=== PATIENT | male | born 1955 | race Caucasian/White ===

== ENCOUNTER 2020-12-23 16:45 | Emergency (ER) | payer SELFPAY ==
[~2020-12-23] VITALS: Ht 182.8 cm; Wt 122.4 kg
[2020-12-23 17:14] LABS: BASOPHILS % (AUTO) 0 % (0-10); EOSINOPHILS % (AUTO) 0 % (0-10); HEMATOCRIT 38 % (40-54); HEMOGLOBIN 13.1 G/DL (13.3-17.7); LYMPHOCYTES # (AUTO) 1.2 X 10^3 (1.0-4.0); LYMPHOCYTES % (AUTO) 26 % (12-44); MEAN CORPUSCULAR HEMOGLOBIN 31 PG (25-34); MEAN CORPUSCULAR HGB CONC 35 G/DL (32-36); MEAN CORPUSCULAR VOLUME 91 FL (80-99); MEAN PLATELET VOLUME 10.9 FL (7.4-10.4); MONOCYTES # (AUTO) 0.3 X 10^3 (0.0-1.0); MONOCYTES % (AUTO) 6 % (0-12); NEUTROPHILS % (AUTO) 67 % (42-75); PLATELET COUNT 161 10^3/uL (130-400); WHITE BLOOD COUNT 4.5 10^3/uL (4.3-11.0)
[2020-12-23 17:20] LABS: ABG BASE EXCESS 3.1 MMOL/L (-2.5-2.5); ABG OXYGEN SATURATION 93 % (94-100); ABG PCO2 38 MMHG (35-45); ABG PH 7.46 (7.37-7.43); ABG PO2 64 MMHG (79-93); ABG TCO2 28.2 MMOL/L (21.0-31.0); INSPIRED O2 ROOM AIR; PATIENT TEMP 36.7; VENTILATOR NO
[2020-12-23 17:28] LABS: ALANINE AMINOTRANSFERASE 76 U/L (0-55); ALBUMIN 3.9 GM/DL (3.2-4.5); ALKALINE PHOSPHATASE 55 U/L (40-136); BILIRUBIN,TOTAL 0.3 MG/DL (0.1-1.0); BUN/CREATININE RATIO 14; CALCIUM 8.9 MG/DL (8.5-10.1); CARBON DIOXIDE 24 MMOL/L (21-32); CHLORIDE 96 MMOL/L (98-107); CREATININE SERUM 1.32 MG/DL (0.60-1.30); GFR ESTIMATED 55; GLUCOSE 210 MG/DL (70-105); POTASSIUM 4.6 MMOL/L (3.6-5.0); SODIUM 133 MMOL/L (135-145); TOTAL PROTEIN 7.5 GM/DL (6.4-8.2)
--- NOTE | 2020-12-23 17:28 | Diagnostic Imaging Report ---
EXAMINATION: Chest 1 view HISTORY: SOA COMPARISON: None available. FINDINGS: Heart size and pulmonary vasculature are normal. There is a prominent opacity within the right lower lobe which is wedge shaped, suggestive of atelectasis. There may be mild uvrx-va-[id number] mediastinal shift. No pleural effusion or pneumothorax. The osseous structures are intact. IMPRESSION: 1. Wedge-shaped opacity within the right lower lobe suggestive of atelectasis, but underlying consolidation or mass cannot be excluded on this radiograph. Consider further evaluation with CT of the chest. 2. There may be some mild [id number]-sx-gfibk mediastinal shift which would favor atelectasis. Dictated by: Dictated on workstation # [id number]
[2020-12-23] MEDS ORDERED: IOHEXOL 350 MG/ML 100 ML (OMNIPAQUE 350) VIAL IV ONE (18:15)
[2020-12-23] MEDS ORDERED: NS 100 ML (IVPB) BAG IV ONE (18:15)
[2020-12-23] MEDS ORDERED: CATHETER FLUSH 10 ML SYR IV PRN (18:15)
[2020-12-23] MEDS ORDERED: HOLD METFORMIN - RECEIVED CONTRAST 20 ML VIAL IV SCH (18:15)
--- NOTE | 2020-12-23 18:44 | Diagnostic Imaging Report ---
EXAMINATION: CT angiography of the chest. TECHNIQUE: Contrast enhanced thin section helical images were obtained through the chest with intravenous contrast timed for the optimal opacification of the arterial structures per CTA protocol. Post-processing, reconstructions and interpretation of angiographic images of the vessels was performed. 3D MIP reconstructions were performed and reviewed. All CT scans use one or more of the following dose optimizing techniques: automated exposure control, MA and/or KvP adjustment based on patient size and exam type or iterative reconstruction. HISTORY: Covid positive, shortness of breath. COMPARISON: Chest radiograph 12/23/2020. FINDINGS: Vascular: No filling defects within the pulmonary arteries. Thoracic aorta is normal in caliber. Thyroid: The thyroid is normal. Mediastinum: Heart size is normal without significant pericardial effusion. There is a prominent subcarinal lymph node with central calcifications. Lungs and airways: There are patchy groundglass opacities seen throughout both lungs. No pleural effusion or pneumothorax. The airways are normal. Upper abdomen: There is diffuse hypoattenuation of liver which can be seen with hepatic steatosis. Musculoskeletal: Degenerative changes of the spine without suspicious osseous lesion or compression fracture. IMPRESSION: 1. No findings of pulmonary embolus. 2. Patchy ground glass opacities throughout both lungs compatible with history of Covid 19 and pneumonia. Dictated by: Dictated on workstation # [id number]
--- NOTE | 2020-12-23 19:03 | ED Respiratory ---
General Chief Complaint: Respiratory Problems Stated Complaint: COVID POSITIVE Nursing Triage Note: Patient presents to the ED with c/o of shortness of breath, cough, fever, and fatigue. He was sent to the ED from [facility] walk in clinic after a positive COVID 19 test. Patient states his symptoms began 8 days ago and his symptoms have not really improved. Source: patient History of Present Illness Date Seen by Provider: Dec 23, 2020 Time Seen by Provider: 16:48 Initial Comments Patient is a 62-year-old male who is Covid +3 days with fever, body aches, cough, shortness of breath for the past 8 days who presents with worsening of underlying symptoms. Patient reports persistent nonproductive cough, chest wall pain, shortness of breath, body aches, fatigue, sweats and generalized malaise. He has self treated with a Z-Alvin and prednisone which he completed 2 days ago. He completed full course of both medications which she had previously picked up during a holiday in [place]. He does not have underlying heart or lung disease that is known. He has not had a measured fever today. Denies nausea vomiting, inability to tolerate oral intake. Denies vomiting and diarrhea. No other acute symptoms or complaints. Timing/Duration: week, getting worse, changing over time Severity: moderate Prior Episodes/Possible Cause: other Modifying Factors: Improves With Other Associated Symptoms: other Allergies and Home Medications Allergies Coded Allergies: No Known Drug Allergies (Unverified , 12/23/20) Patient Home Medication List Home Medication List Reviewed: Yes Review of Systems Review of Systems Constitutional: see HPI EENTM: see HPI Respiratory: see HPI Cardiovascular: see HPI Gastrointestinal: see HPI Genitourinary: see HPI Musculoskeletal: see HPI Skin: see HPI Psychiatric/Neurological: See HPI Hematologic/Lymphatic: See HPI Immunological/Allergic: see HPI All Other Systems Reviewed Negative Unless Noted: Yes Past Pumcdyu-Aryqhm-Wblsyk Hx Past Med/Social Hx: Reviewed Nursing Past Med/Soc Hx Patient Social History Alcohol Use: Occasionally Uses Smoking Status: Never a Smoker 2nd Hand Smoke Exposure: No Recent Infectious Disease Expo: No Recent Hopitalizations: No Seasonal Allergies Seasonal Allergies: No Past Medical History Surgeries: No Sleep Apnea, COPD Currently Using CPAP: Yes Cardiac: Yes High Cholesterol, Hypertension Neurological: No Genitourinary: No Gastrointestinal: No Musculoskeletal: No Endocrine: Yes Diabetes, Non-Insulin dep HEENT: No Cancer: No Psychosocial: No Integumentary: Yes (Skin Tags) Blood Disorders: No Physical Exam Vital Signs - First Documented 12/23/20 16:50 Temp 36.8 Pulse 115 Resp 16 B/P (MAP) 156/115 (129) Pulse Ox 93 O2 Delivery Room Air Capillary Refill : Less Than 3 Seconds Height: '" Weight: lbs. oz. 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, no motor/sensory deficits, alert, oriented x 3 Skin: normal color (Flushing), other Lymphatic: no adenopathy Focused Exam Sepsis Stage: Ruled Out Lactate Level 12/23/20 16:58: Lactic Acid Level 1.43 Lactic Acid Level Laboratory Tests Test 12/23/20 16:58 Lactic Acid Level 1.43 MMOL/L (0.50-2.00) Progress/Results/Core Measures Suspected Sepsis Recent Fever Within 48 Hours: Yes Infection Criteria Present: Documented Infection New/Unexplained Altered Menta: No Sepsis Screen: Possible Severe Sepsis Risk SIRS Temperature: Pulse: 115 Respiratory Rate: 16 Laboratory Tests 12/23/20 16:58: White Blood Count 4.5 Blood Pressure 156 /115 Mean: 129 12/23/20 16:58: Lactic Acid Level 1.43 Laboratory Tests 12/23/20 16:58: Creatinine 1.32H, Platelet Count 161, Total Bilirubin 0.3 Results/Orders Lab Results Laboratory Tests Test 12/23/20 16:58 12/23/20 17:16 Range/Units White Blood Count 4.5 4.3-11.0 10^3/uL Red Blood Count 4.18 L 4.35-5.85 10^6/uL Hemoglobin 13.1 L 13.3-17.7 G/DL Hematocrit 38 L 40-54 % Mean Corpuscular Volume 91 80-99 FL Mean Corpuscular Hemoglobin 31 25-34 PG Mean Corpuscular Hemoglobin Concent 35 32-36 G/DL Red Cell Distribution Width 13.7 10.0-14.5 % Platelet Count 161 130-400 10^3/uL Mean Platelet Volume 10.9 H 7.4-10.4 FL Immature Granulocyte % (Auto) 0 % Neutrophils (%) (Auto) 67 42-75 % Lymphocytes (%) (Auto) 26 12-44 % Monocytes (%) (Auto) 6 0-12 % Eosinophils (%) (Auto) 0 0-10 % Basophils (%) (Auto) 0 0-10 % Neutrophils # (Auto) 3.0 1.8-7.8 X 10^3 Lymphocytes # (Auto) 1.2 1.0-4.0 X 10^3 Monocytes # (Auto) 0.3 0.0-1.0 X 10^3 Eosinophils # (Auto) 0.0 0.0-0.3 10^3/uL Basophils # (Auto) 0.0 0.0-0.1 10^3/uL Immature Granulocyte # (Auto) 0.0 0.0-0.1 10^3/uL Sodium Level 133 L 135-145 MMOL/L Potassium Level 4.6 3.6-5.0 MMOL/L Chloride Level 96 L 98-107 MMOL/L Carbon Dioxide Level 24 21-32 MMOL/L Anion Gap 13 5-14 MMOL/L Blood Urea Nitrogen 19 H 7-18 MG/DL Creatinine 1.32 H 0.60-1.30 MG/DL Estimat Glomerular Filtration Rate 55 BUN/Creatinine Ratio 14 Glucose Level 210 H 70-105 MG/DL Lactic Acid Level 1.43 0.50-2.00 MMOL/L Calcium Level 8.9 8.5-10.1 MG/DL Corrected Calcium 9.0 8.5-10.1 MG/DL Total Bilirubin 0.3 0.1-1.0 MG/DL Aspartate Amino Transf (AST/SGOT) 122 H 5-34 U/L Alanine Aminotransferase (ALT/SGPT) 76 H 0-55 U/L Alkaline Phosphatase 55 40-136 U/L Troponin I < 0.30 <0.30 NG/ML Pro-B-Type Natriuretic Peptide 44.2 <75.0 PG/ML Total Protein 7.5 6.4-8.2 GM/DL Albumin 3.9 3.2-4.5 GM/DL Blood Gas Puncture Site RIGHT WRIST Blood Gas Patient Temperature 36.7 Arterial Blood pH 7.46 H 7.37-7.43 Arterial Blood Partial Pressure CO2 38 35-45 MMHG Arterial Blood Partial Pressure O2 64 L 79-93 MMHG Arterial Blood HCO3 27 23-27 MMOL/L Arterial Blood Total CO2 28.2 21.0-31.0 MMOL/L Arterial Blood Oxygen Saturation 93 L 94-100 % Arterial Blood Base Excess 3.1 H -2.5-2.5 MMOL/L Janak Test N/A Blood Gas Ventilator Setting NO Blood Gas Inspired Oxygen ROOM AIR My Orders Orders - VALERIE ARREOLA DO Cbc With Automated Diff (12/23/20 17:11) Comprehensive Metabolic Panel (12/23/20 17:11) Probnp Fs (12/23/20 17:11) Arterial Blood Gas (12/23/20 17:11) Troponin I Fs (12/23/20 17:11) Ekg-Prn For Chest Pain Or Rhyt (12/23/20 17:11) Chest 1 View Ap/Pa Only (12/23/20 17:11) Lactic Acid Analyzer (12/23/20 17:13) Blood Culture (12/23/20 17:13) Blood Culture (12/23/20 16:58) Ct Angio Chest W (12/23/20 17:59) Iohexol Injection (Omnipaque 350 Mg/Ml 1 (12/23/20 18:15) Received Contrast (Hold Metformin- Contr (12/23/20 18:15) Sodium Chloride Flush (Catheter Flush Sy (12/23/20 18:15) Ns (Ivpb) (Sodium Chloride 0.9% Ivpb Bag (12/23/20 18:15) Medications Given in ED Current Medications Medications Dose Ordered Sig/Choco Route Start Time Stop Time Status Last Admin Dose Admin Iohexol 85 ml ONCE ONCE IV 12/23/20 18:15 12/23/20 18:16 DC 12/23/20 18:34 85 ML Sodium Chloride 10 ml NEEDED PRN IV 12/23/20 18:15 12/23/20 18:34 10 ML Sodium Chloride 100 ml ONCE ONCE IV 12/23/20 18:15 12/23/20 18:16 DC 12/23/20 18:34 100 ML Vital Signs/I&O 12/23/20 16:50 Temp 36.8 Pulse 115 Resp 16 B/P (MAP) 156/115 (129) Pulse Ox 93 O2 Delivery Room Air Capillary Refill : Less Than 3 Seconds Blood Pressure Mean: 129 Departure Communication (Admissions) Chest x-ray: Wedge-shaped opacity in the lung base with groundglass opacities. CTA chest: No evidence of pulmonary embolus or lobar pneumonia. EKG: Normal sinus rhythm, no acute ST-T wave changes. Patient with Covid positive with persistent respiratory symptoms with overall worsening of symptoms in the past few days. Patient has not hypoxic requiring oxygen and does not qualify for out autoimmune infusion due to disseminated nature of illness and length of symptoms. Recommend continued watchful waiting supportive care with close monitoring and PCP follow-up. Return precautions reviewed. Patient verbalizes understanding and agreement discharge instructions prior to departure. Impression Primary Impression: COVID-19 Disposition: 01 HOME, SELF-CARE Condition: Stable Departure-Patient Inst. Decision time for Depature: 19:04 Patient Instructions: CONTRAST ANTIDIABETIC MEDS, Coronavirus Disease 2019 (COVID-19) Overview Add. Discharge Instructions: Please take newly prescribed medications as directed. Continue to monitor home oxygen levels and return to the ED for persistent oxygen saturation of 90% or less. Follow-up with your PCP for reevaluation. Return to the ED if new or worsening symptoms All discharge instructions reviewed with patient and/or family. Voiced understanding. Scripts Benzonatate (TESSALON PERLES) 100 Mg Capsule 200 MG PO TID, #30 CAP Prov: VALERIE ARREOLA DO 12/23/20 Albuterol Sulfate (Proventil Hfa) 6.7 Gm Hfa.aer.ad 2 PUFF INH Q6H for SHORTNESS OF BREATH, #1 EACH Prov: VALERIE ARREOLA DO 12/23/20 Prednisone (Prednisone) 20 Mg Tab 40 MG PO DAILY, #6 TAB 0 Refills Prov: VALERIE ARREOLA DO 12/23/20 Doxycycline Hyclate (Doxycycline Hyclate) 100 Mg Tablet 100 MG PO BID, #20 TAB 0 Refills Prov: VALERIE ARREOLA DO 12/23/20 VALERIE ARREOLA DO Dec 23, 2020 19:03
[2020-12-23] MEDS ORDERED: PRD20T PO (19:07)
[2020-12-23] MEDS ORDERED: RT-ALBUINH INH (19:07)
[2020-12-23] MEDS ORDERED: DOXY100T2 PO (19:07)
[2020-12-23] MEDS ORDERED: BENZ100C18 PO (19:07)
[2020-12-23 19:12] VITALS: BP 134/96
== END 2020-12-23 19:12 | disposition home or self-care (01) ==
LOC: ER FS 16:47
DX: U07.1 COVID-19 (principal); I10 Essential (primary) hypertension; E11.9 Type 2 diabetes mellitus without complications; G47.30 Sleep apnea, unspecified; Z99.89 Dependence on other enabling machines and devices
CPT/HCPCS: 36415; 71045; 71275; 80053; 82805; 83605; 83880; 84484; 85025; 87040; 93005

== ENCOUNTER 2020-12-26 12:13 | Inpatient (IN) | payer SELFPAY ==
[~2020-12-26] VITALS: Ht 182.9 cm; Wt 127.5 kg
[~2020-12-26 12:13] MED LIST: BENZ100C18 PO; DOXY100T2 PO; PRD20T PO; RT-ALBUINH INH
--- NOTE | 2020-12-26 12:44 | ED Respiratory ---
General Chief Complaint: Respiratory Problems Stated Complaint: SOB; COVID+ Nursing Triage Note: Has been sick x 2 weeks. Diagnosed with covid on 11/18. Has gotten increasingly short of breath. Checked his O2 sats at home today and they were 79-83% on room air. Has been on steroids, inhaler, and antibiotic at home for symptoms. Source: patient Exam Limitations: no limitations History of Present Illness Date Seen by Provider: Dec 26, 2020 Time Seen by Provider: 12:23 Initial Comments Patient arrives to the ER by private conveyance from home with chief complaint o f progressively worsening shortness of breath for the past couple weeks with cough and fever. Symptoms started 2 weeks ago when he was diagnosed on the with Covid outpatient. He is here a couple days ago in the ER to be checked out and at that time had a CT scan of his chest that did not show anything and his oxygen sats were 93 to 94%. Nursing reports 79 to 83% on room air on arrival. He does not have a history of COPD, asthma or lung disease nor does he depend on supplemental oxygen at baseline. He has been on steroids for the past week and an antibiotic and inhaler. He is having some nausea but no vomiting. No diarrhea constipation. Poor appetite. He has a history of diabetes, hypertension, hyperlipidemia but no heart history. No chest pain. Known to Dr. Paris for primary care. He did not receive Bamlanivimab therapy outpatient. He was seen 3 days ago in the ER and had a normal-looking EKG and although he was tachycardic 115 he was not pyretic and had normal respiratory rate and oxygen saturation 93 to 94%. He was sent home with some Tessalon Perles, steroids, doxycycline and an albuterol inhaler. Allergies and Home Medications Allergies Coded Allergies: No Known Drug Allergies (Unverified , 12/23/20) Home Medications Albuterol Sulfate 6.7 Gm Hfa.aer.ad, 2 PUFF INH Q6H Prescribed by: VALERIE ARREOLA on 12/23/201906 Benzonatate 100 Mg Capsule, 200 MG PO TID Prescribed by: VALERIE ARREOLA on 12/23/201906 Doxycycline Hyclate 100 Mg Tablet, 100 MG PO BID Prescribed by: VALERIE ARREOLA on 12/23/201906 Prednisone 20 Mg Tab, 40 MG PO DAILY Prescribed by: VALERIE ARREOLA on 12/23/201906 Patient Home Medication List Home Medication List Reviewed: Yes Review of Systems Review of Systems Constitutional: chills, fever, malaise EENTM: No ear discharge, No hearing loss Respiratory: cough; No hemoptysis, No phlegm; short of breath; No wheezing Cardiovascular: No chest pain, No edema, No Hx of Intervention, No palpitations Gastrointestinal: No abdominal pain; loss of appetite, nausea; No vomiting Genitourinary: No decreased output, No discharge Musculoskeletal: No back pain, No joint pain Psychiatric/Neurological: Denies Anxiety, Denies Depressed All Other Systems Reviewed Negative Unless Noted: Yes Past Csuoruo-Mfjyxp-Pfbwep Hx Patient Social History Alcohol Use: Denies Use Drug of Choice: Denies Smoking Status: Never a Smoker 2nd Hand Smoke Exposure: No Recent Infectious Disease Expo: No Recent Hopitalizations: No Seasonal Allergies Seasonal Allergies: No Past Medical History Surgeries: No Respiratory: Yes Sleep Apnea, COPD Currently Using CPAP: Yes Cardiac: Yes High Cholesterol, Hypertension Neurological: No Genitourinary: No Gastrointestinal: No Musculoskeletal: No Endocrine: Yes Diabetes, Non-Insulin dep HEENT: No Cancer: No Psychosocial: No Integumentary: Yes (Skin Tags) Blood Disorders: No Physical Exam Vital Signs - First Documented 12/26/20 12:34 Temp 39.5 Pulse 123 Resp 25 B/P (MAP) 141/86 (104) Pulse Ox 92 O2 Delivery Nasal Cannula Capillary Refill : Less Than 3 Seconds Height: '" Weight: lbs. oz. kg; 36.00 BMI Method: General Appearance: severe distress, obese Eyes: Bilateral Eye Normal Inspection, Bilateral Eye PERRL, Bilateral Eye EOMI HEENT: PERRL/EOMI, pharynx normal Neck: full range of motion Respiratory: lungs clear, respiratory distress (Oxygen saturation 80% on room air on arrival. Increased work of breathing and respiratory rate 35 breaths/min) Cardiovascular: no edema, no JVD, tachycardia (125) Gastrointestinal: non tender, soft Neurologic/Psychiatric: alert, oriented x 3, other (Slowed mentation which improved with supplemental oxygen) Skin: normal color, warm/dry Focused Exam Sepsis Stage: Sepsis Possible Source: Pulmonary Lactate Level 12/26/20 12:30: Lactic Acid Level 1.96 Time of Focused Exam: 16:20 Respiratory: Chest Non Tender, Lungs Clear, Normal Breath Sounds, No Accessory Muscle Use, Respiratory Distress (On CPAP FiO2 60% with sats of 98 to 99%) Cardiovascular: Regular Rate, Rhythm (Heart rate in the 80s), No Edema, Normal Peripheral Pulses Capillary Refill: Less Than 3 Seconds Peripheral Pulses: 2+ Dorsalis Pedis (R), 2+ Left Dors-Pedis (L) Skin: normal color, warm/dry; No cyanosis Lactic Acid Level Laboratory Tests Test 12/26/20 12:30 Lactic Acid Level 1.96 MMOL/L (0.50-2.00) Within 3hrs of presentation: Admin fluids (Truncated fluid administration because of COVID-19.), Admin ABX, Blood cultures prior to ABX's, Focus exam, Lactate level Progress/Results/Core Measures Suspected Sepsis Recent Fever Within 48 Hours: Yes Infection Criteria Present: Documented Infection New/Unexplained Altered Menta: No Sepsis Screen: Possible Sepsis Risk SIRS Temperature: Pulse: 123 Respiratory Rate: 25 Laboratory Tests 12/26/20 12:30: White Blood Count 8.9 Blood Pressure 141 /86 Mean: 104 12/26/20 12:30: Lactic Acid Level 1.96 Laboratory Tests 12/26/20 12:30: Creatinine 1.48H, INR Comment 1.0, Platelet Count 248, Total Bilirubin 0.4 Results/Orders Lab Results Laboratory Tests Test 12/26/20 12:30 12/26/20 13:37 Range/Units White Blood Count 8.9 4.3-11.0 10^3/uL Red Blood Count 4.09 L 4.35-5.85 10^6/uL Hemoglobin 12.7 L 13.3-17.7 G/DL Hematocrit 37 L 40-54 % Mean Corpuscular Volume 91 80-99 FL Mean Corpuscular Hemoglobin 31 25-34 PG Mean Corpuscular Hemoglobin Concent 34 32-36 G/DL Red Cell Distribution Width 13.6 10.0-14.5 % Platelet Count 248 130-400 10^3/uL Mean Platelet Volume 10.2 7.4-10.4 FL Immature Granulocyte % (Auto) 1 % Neutrophils (%) (Auto) 84 H 42-75 % Lymphocytes (%) (Auto) 11 L 12-44 % Monocytes (%) (Auto) 5 0-12 % Eosinophils (%) (Auto) 0 0-10 % Basophils (%) (Auto) 0 0-10 % Neutrophils # (Auto) 7.5 1.8-7.8 X 10^3 Lymphocytes # (Auto) 1.0 1.0-4.0 X 10^3 Monocytes # (Auto) 0.4 0.0-1.0 X 10^3 Eosinophils # (Auto) 0.0 0.0-0.3 10^3/uL Basophils # (Auto) 0.0 0.0-0.1 10^3/uL Immature Granulocyte # (Auto) 0.1 0.0-0.1 10^3/uL Prothrombin Time 13.3 12.2-14.7 SEC INR Comment 1.0 0.8-1.4 Activated Partial Thromboplast Time 28 24-35 SEC D-Dimer 1.23 H 0.00-0.49 UG/ML Blood Gas Puncture Site LT RADIAL Blood Gas Patient Temperature 103.1 Arterial Blood pH 7.49 H 7.37-7.43 Arterial Blood Partial Pressure CO2 34 L 35-45 MMHG Arterial Blood Partial Pressure O2 58 L 79-93 MMHG Arterial Blood HCO3 26 23-27 MMOL/L Arterial Blood Total CO2 26.9 21.0-31.0 MMOL/L Arterial Blood Oxygen Saturation 92 L 94-100 % Arterial Blood Base Excess 2.8 H -2.5-2.5 MMOL/L Janak Test POSITIVE Blood Gas Ventilator Setting NO Blood Gas Inspired Oxygen ROOM AIR Sodium Level 130 L 135-145 MMOL/L Potassium Level 4.2 3.6-5.0 MMOL/L Chloride Level 93 L 98-107 MMOL/L Carbon Dioxide Level 25 21-32 MMOL/L Anion Gap 12 5-14 MMOL/L Blood Urea Nitrogen 23 H 7-18 MG/DL Creatinine 1.48 H 0.60-1.30 MG/DL Estimat Glomerular Filtration Rate 48 BUN/Creatinine Ratio 16 Glucose Level 253 H 70-105 MG/DL Lactic Acid Level 1.96 0.50-2.00 MMOL/L Calcium Level 8.5 8.5-10.1 MG/DL Corrected Calcium 8.8 8.5-10.1 MG/DL Total Bilirubin 0.4 0.1-1.0 MG/DL Aspartate Amino Transf (AST/SGOT) 99 H 5-34 U/L Alanine Aminotransferase (ALT/SGPT) 71 H 0-55 U/L Alkaline Phosphatase 48 40-136 U/L Troponin I < 0.30 <0.30 NG/ML C-Reactive Protein 6.76 H <0.50 MG/DL Pro-B-Type Natriuretic Peptide 53.6 <75.0 PG/ML Total Protein 7.3 6.4-8.2 GM/DL Albumin 3.6 3.2-4.5 GM/DL Urine Color YELLOW Urine Clarity CLEAR Urine pH 6.0 5-9 Urine Specific Donaldson 1.025 H 1.016-1.022 Urine Protein 2+ H NEGATIVE Urine Glucose (UA) NEGATIVE NEGATIVE Urine Ketones NEGATIVE NEGATIVE Urine Nitrite NEGATIVE NEGATIVE Urine Bilirubin NEGATIVE NEGATIVE Urine Urobilinogen 0.2 < = 1.0 MG/DL Urine Leukocyte Esterase NEGATIVE NEGATIVE Urine RBC (Auto) 3+ H NEGATIVE Urine RBC RARE /HPF Urine WBC RARE /HPF Urine Squamous Epithelial Cells NONE /HPF Urine Crystals PRESENT H /LPF Urine Amorphous Sediment FEW COLLIN URATES H /LPF Urine Bacteria NEGATIVE /HPF Urine Casts PRESENT /LPF Urine Granular Casts 0-2 H /LPF Urine Mucus SMALL H /LPF Urine Culture Indicated NO Micro Results Microbiology 12/26/20 Influenza Types A,B Antigen (MARÍA) - Final, Complete My Orders Orders - HERNAN OATES Cbc With Automated Diff (12/26/20 12:37) Comprehensive Metabolic Panel (12/26/20 12:37) Blood Culture (12/26/20 12:37) Sputum Culture (12/26/20 12:37) Urinalysis (12/26/20 12:37) Urine Culture (12/26/20 12:37) Protime With Inr (12/26/20 12:37) Partial Thromboplastin Time (12/26/20 12:37) Chest 1 View Ap/Pa Only (12/26/20 12:37) Ed Iv/Invasive Line Start (12/26/20 12:37) Ed Iv/Invasive Line Start (12/26/20 12:37) Vital Signs Adult Sepsis Patie Q15M (12/26/20 12:37) O2 (12/26/20 12:37) Remove Rings In Anticipation O (12/26/20 12:37) Lactic Acid Analyzer (12/26/20 12:37) Lactated Ringers (Lr 1000 Ml Iv Solution (12/26/20 12:45) Ceftriaxone For Iv Use (Rocephin For I (12/26/20 12:45) Azithromycin Injection (Zithromax Inject (12/26/20 12:45) Arterial Blood Gas (12/26/20 12:37) Covid-19 External Lab Results (12/26/20 12:37) Crp Fs (12/26/20 12:37) Procalcitonin (Pct) (12/26/20 12:37) Fibrin Degradation Products (12/26/20 12:37) Influenza A And B Antigens (12/26/20 12:37) Dexamethasone Injection (Decadron Injec (12/26/20 12:45) Ondansetron Injection (Zofran Injectio (12/26/20 12:45) Ekg Tracing (12/26/20 12:49) Continuous Ekg Monitoring (12/26/20 12:49) Troponin I Fs (12/26/20 12:49) Probnp Fs (12/26/20 12:49) Aspirin Chewable Tablet (Baby Aspirin Ch (12/26/20 13:00) Acetaminophen Tablet (Tylenol Tablet) (12/26/20 12:54) Acetaminophen Tablet (Tylenol Tablet) (12/26/20 13:15) Medications Given in ED Current Medications Medications Dose Ordered Sig/Choco Route Start Time Stop Time Status Last Admin Dose Admin Acetaminophen 500 mg STK-MED ONCE .ROUTE 12/26/20 12:54 12/26/20 13:01 DC 12/26/20 13:11 500 MG Aspirin 324 mg ONCE ONCE PO 12/26/20 13:00 12/26/20 13:01 DC 12/26/20 12:57 324 MG Azithromycin 500 mg/Sodium Chloride 255 ml @ 250 mls/hr ONCE ONCE IV 12/26/20 12:45 12/26/20 13:46 DC 12/26/20 13:11 250 MLS/HR Ceftriaxone Sodium 1000 mg/ Sterile Water 10 ml @ 200 mls/hr ONCE ONCE IV 12/26/20 12:45 12/26/20 12:47 DC 12/26/20 13:03 200 MLS/HR Dexamethasone Sodium Phosphate 6 mg ONCE ONCE IV 12/26/20 12:45 12/26/20 12:46 DC 12/26/20 13:02 6 MG Lactated Ringer's 1,000 ml @ 0 mls/hr Q0M ONCE IV 12/26/20 12:45 12/26/20 12:46 DC 12/26/20 13:00 999 MLS/HR Ondansetron HCl 4 mg ONCE ONCE IVP 12/26/20 12:45 12/26/20 12:46 DC 12/26/20 12:59 4 MG Vital Signs/I&O 12/26/20 12:34 Temp 39.5 Pulse 123 Resp 25 B/P (MAP) 141/86 (104) Pulse Ox 92 O2 Delivery Nasal Cannula Capillary Refill : Less Than 3 Seconds Blood Pressure Mean: 104 Progress Note #1: Time: 12:47 Progress Note Septic work-up but we are being cautious with IV fluids as he has known Covid. Opportunistic pneumonia is very possible. We put him on 4 L by nasal cannula which brought his oxygen sat up to 94% and have gotten an ABG. After we review that we will discuss whether he should go on BiPAP due to his extra work of breathing. We have elected to go ahead and treat him with Rocephin and azithromycin for opportunistic infection and get blood cultures and sputum culture. Influenza swab. Progress Note #2: Time: 16:20 Progress Note Patient had no material deterioration during his stay in the ER. He was sitting in the recliner because his back was hurting on the cot. He is wearing the CPAP with no difficulty at 7 cm water pressure with FiO2 60%. He is much more alert and comfortable now. EMS here to take him to [facility] ICU. ECG Initial ECG Impression Date: Dec 26, 2020 Initial ECG Impression Time: 13:14 Initial ECG Rate: 115 Initial ECG Rhythm: S.Tach Initial ECG Intervals: Normal Initial ECG Impression: Normal Comment Sinus tachycardia without clinically relevant ST elevation or depression. Diagnostic Imaging Diagonstic Imaging: Xray Plain Films/CT/US/NM/MRI: chest Comments NAME: [facility]WS [facility] REC#: [id number] PT STATUS: REG ER : 1955 PHYSICIAN: HERNAN OATES MD ADMIT DATE: 12/26/20/ER FS Draft Date of Exam:12/26/20 CHEST 1 VIEW AP/PA ONLY EXAMINATION: Portable erect AP chest at 12:36 p.m. INDICATION: Shortness of breath. The heart size is stable when compared to the prior exam of 12/23/2020. The CT chest exam performed on the same date did note groundglass alveolar/interstitial infiltrates bilaterally. By history the patient does have a diagnosis of Covid-19. On this exam the patchy alveolar/interstitial infiltrates involving both lungs seen previously are again evident and do not seem to have changed significantly. There may be a new small area of slight increased density in the left retrocardiac region. There is still no pleural effusion identified and the mediastinum is not widened. The osseous structures are intact. IMPRESSION: There is slightly greater involvement of the left lung base by pneumonia/atelectasis. The overall appearance of the chest has not changed significantly otherwise. Dictated on workstation # [id number] Dict: 12/26/20 1308 Trans: 12/26/20 1313 [facility] [id number] Interpreted by: TAMIR BLAIR MD Electronically signed by: Reviewed: Reviewed by Me Departure Communication (Admissions) Time/Spoke to Admitting Phy: 13:14 Discussed the case with Dr. Das and she agrees to accept the patient to the ICU on CPAP for COVID-19. Time/Spoke to Consulting Phy: 13:25 Discussed the case with Dr. Gary, pulmonology and he agrees to consult Impression Primary Impression: COVID-19 Additional Impressions: Acute respiratory failure with hypoxemia Sepsis Qualified Codes: A41.9 - Sepsis, unspecified organism; R65.20 - Severe sepsi s without septic shock; J96.01 - Acute respiratory failure with hypoxia Pneumonia Qualified Codes: J18.9 - Pneumonia, unspecified organism Disposition: ADMITTED INPATIENT Condition: Stable Admissions Decision to Admit Reason: Admit from ER (General) Decision to Admit/Date: Dec 26, 2020 Time/Decision to Admit Time: 13:10 Departure-Patient Inst. Referrals: SHRADDHA PARIS MD (PCP/Family) Primary Care Physician HERNAN OATES Dec 26, 2020 12:44
[2020-12-26] MEDS ORDERED: cefTRIAXone FOR IV USE 1,000 MG in WATER (STERILE) FOR INJECTION 10 ML IV ONE (12:45)
[2020-12-26] MEDS ORDERED: LACTATED RINGERS 1,000 ML IV ONE (12:45)
[2020-12-26] MEDS ORDERED: ONDANSETRON 4 MG/2 ML (SDV) Z0FRAN IVP ONE (12:45)
[2020-12-26] MEDS ORDERED: AZITHROMYCIN INJECTION 500 MG in NS (IVPB) 250 ML IV ONE (12:45)
[2020-12-26 12:49] LABS: BASOPHILS % (AUTO) 0 % (0-10); EOSINOPHILS % (AUTO) 0 % (0-10); HEMATOCRIT 37 % (40-54); HEMOGLOBIN 12.7 G/DL (13.3-17.7); LYMPHOCYTES % (AUTO) 11 % (12-44); MEAN CORPUSCULAR HEMOGLOBIN 31 PG (25-34); MEAN CORPUSCULAR HGB CONC 34 G/DL (32-36); MEAN CORPUSCULAR VOLUME 91 FL (80-99); MEAN PLATELET VOLUME 10.2 FL (7.4-10.4); MONOCYTES % (AUTO) 5 % (0-12); NEUTROPHILS % (AUTO) 84 % (42-75); PLATELET COUNT 248 10^3/uL (130-400); WHITE BLOOD COUNT 8.9 10^3/uL (4.3-11.0)
[2020-12-26 12:50] LABS: MONOCYTES # (AUTO) 0.4 X 10^3 (0.0-1.0); NEUTROPHILS # (AUTO) 7.5 X 10^3 (1.8-7.8)
[2020-12-26 12:51] LABS: ABG PCO2 34 MMHG (35-45); ABG PH 7.49 (7.37-7.43); ABG PO2 58 MMHG (79-93); ABG TCO2 26.9 MMOL/L (21.0-31.0)
[2020-12-26 12:52] LABS: ABG BASE EXCESS 2.8 MMOL/L (-2.5-2.5); ABG OXYGEN SATURATION 92 % (94-100); ALLENS TEST POSITIVE; INSPIRED O2 ROOM AIR; VENTILATOR NO
[2020-12-26 12:53] LABS: PATIENT TEMP 103.1
[2020-12-26] MEDS ORDERED: ACETAMINOPHEN 500 MG TAB (TYLENOL) ONE (12:54)
[2020-12-26] MEDS ORDERED: ASPIRIN 81 MG CHEW (CHILDREN'S ASA) PO ONE (13:00)
[2020-12-26 13:08] LABS: POTASSIUM 4.2 MMOL/L (3.6-5.0)
[2020-12-26 13:09] LABS: BILIRUBIN,TOTAL 0.4 MG/DL (0.1-1.0); CALCIUM 8.5 MG/DL (8.5-10.1); CREATININE SERUM 1.48 MG/DL (0.60-1.30); TOTAL PROTEIN 7.3 GM/DL (6.4-8.2)
[2020-12-26 13:10] LABS: ALBUMIN 3.6 GM/DL (3.2-4.5)
--- NOTE | 2020-12-26 13:14 | Diagnostic Imaging Report ---
EXAMINATION: Portable erect AP chest at 12:36 p.m. INDICATION: Shortness of breath. The heart size is stable when compared to the prior exam of 12/23/2020. The CT chest exam performed on the same date did note groundglass alveolar/interstitial infiltrates bilaterally. By history the patient does have a diagnosis of Covid-19. On this exam the patchy alveolar/interstitial infiltrates involving both lungs seen previously are again evident and do not seem to have changed significantly. There may be a new small area of slight increased density in the left retrocardiac region. There is still no pleural effusion identified and the mediastinum is not widened. The osseous structures are intact. IMPRESSION: There is slightly greater involvement of the left lung base by pneumonia/atelectasis. The overall appearance of the chest has not changed significantly otherwise. Dictated by: Dictated on workstation # [id number]
[2020-12-26] MEDS ORDERED: ACETAMINOPHEN 500 MG TAB (TYLENOL) PO ONE (13:15)
[2020-12-26 13:27] LABS: FIBRIN DEGRADATION PRODUCTS 1.23 UG/ML (0.00-0.49); PROTHROMBIN TIME PATIENT 13.3 SEC (12.2-14.7)
[2020-12-26 13:50] LABS: CLARITY,URINE CLEAR; COLOR,URINE YELLOW
[2020-12-26 13:51] LABS: GLUCOSE, URINE (UA) NEGATIVE (NEGATIVE); PROTEIN,URINE 2+ (NEGATIVE)
[2020-12-26 13:55] LABS: BACTERIA,URINE NEGATIVE /HPF; BILIRUBIN,URINE NEGATIVE (NEGATIVE); KETONES,URINE NEGATIVE (NEGATIVE); LEUKOCYTE ESTERASE ,URINE NEGATIVE (NEGATIVE); NITRITE,URINE NEGATIVE (NEGATIVE); RBC,URINE RARE /HPF; WBC,URINE RARE /HPF
[2020-12-26 13:56] LABS: AMORPHOUS SEDIMENT,UR FEW AMOR URATES /LPF; GRANULAR CASTS,URINE 0-2 /LPF
[2020-12-26 17:15] VITALS: BP 142/84
[2020-12-26 18:03] VITALS: BP 135/84
[2020-12-26 18:33] LABS: ABG BASE EXCESS -1.1 MMOL/L (-2.5-2.5); ABG OXYGEN SATURATION 100 % (94-100); ABG PCO2 39 MMHG (35-45); ABG PO2 221 MMHG (79-93); ABG TCO2 24.3 MMOL/L (21.0-31.0)
[2020-12-26 18:34] LABS: ALLENS TEST POS
[2020-12-26 18:35] LABS: PATIENT TEMP 37; VENTILATOR NO
[2020-12-26 18:43] LABS: POTASSIUM 4.5 MMOL/L (3.6-5.0)
[2020-12-26 18:44] LABS: CALCIUM 8.3 MG/DL (8.5-10.1)
[2020-12-26] MEDS ORDERED: ANTACID SUSP 30 ML UDC (MYLANTA) PO PRN (18:45)
[2020-12-26] MEDS ORDERED: CATHETER FLUSH 10 ML SYR IV PRN (18:45)
[2020-12-26 18:46] LABS: BASOPHILS % (AUTO) 0 % (0-10); EOSINOPHILS % (AUTO) 0 % (0-10); HEMATOCRIT 36 % (40-54); HEMOGLOBIN 11.7 g/dL (13.3-17.7); LYMPHOCYTES # (AUTO) 0.7 10^3/uL (1.0-4.0); LYMPHOCYTES % (AUTO) 10 % (12-44); MEAN CORPUSCULAR HEMOGLOBIN 31 pg (25-34); MEAN CORPUSCULAR HGB CONC 33 g/dL (32-36); MEAN CORPUSCULAR VOLUME 94 fL (80-99); MEAN PLATELET VOLUME 10.4 fL (9.0-12.2); MONOCYTES # (AUTO) 0.2 10^3/uL (0.0-1.0); MONOCYTES % (AUTO) 3 % (0-12); NEUTROPHILS # (AUTO) 6.3 10^3/uL (1.8-7.8); NEUTROPHILS % (AUTO) 87 % (42-75); PLATELET COUNT 207 10^3/uL (130-400); WHITE BLOOD COUNT 7.2 10^3/uL (4.3-11.0)
[2020-12-26 18:49] LABS: CREATININE SERUM 1.55 MG/DL (0.60-1.30)
[2020-12-26 18:51] LABS: MAGNESIUM 1.8 MG/DL (1.6-2.4)
[2020-12-26] MEDS: ENOXAPARIN 40 MG/0.4 ML (LOVENOX) SYR SC SCH (18:54)
[2020-12-26] MEDS: LACTATED RINGERS 1,000 ML IV SCH (18:54)
[2020-12-26] MEDS ORDERED: ALBUTEROL/IPRATROP (COMBIVENT RESPIMAT) 4 GM INHALER IH SCH (20:00)
[2020-12-26] MEDS: RT-ALBUTEROL INHALER HFA (VENTOLIN HFA) 18 GM IH SCH (22:37)
[2020-12-26 22:43] VITALS: BP 142/90
[2020-12-26] MEDS: inSUlin ASPART (NovoLOG) 1 UNIT/0.01 ML (CHARGE PER UNIT) SC SCH (23:54)
[2020-12-27 02:43] VITALS: BP 125/71
[2020-12-27 02:56] LABS: BASOPHILS % (AUTO) 0 % (0-10); EOSINOPHILS % (AUTO) 0 % (0-10); HEMATOCRIT 35 % (40-54); HEMOGLOBIN 11.6 g/dL (13.3-17.7); LYMPHOCYTES # (AUTO) 1.1 10^3/uL (1.0-4.0); LYMPHOCYTES % (AUTO) 13 % (12-44); MEAN CORPUSCULAR HEMOGLOBIN 31 pg (25-34); MEAN CORPUSCULAR HGB CONC 33 g/dL (32-36); MEAN CORPUSCULAR VOLUME 93 fL (80-99); MEAN PLATELET VOLUME 10.3 fL (9.0-12.2); MONOCYTES # (AUTO) 0.4 10^3/uL (0.0-1.0); MONOCYTES % (AUTO) 4 % (0-12); NEUTROPHILS # (AUTO) 7.1 10^3/uL (1.8-7.8); NEUTROPHILS % (AUTO) 83 % (42-75); PLATELET COUNT 232 10^3/uL (130-400); WHITE BLOOD COUNT 8.6 10^3/uL (4.3-11.0)
[2020-12-27 03:20] LABS: POTASSIUM 4.1 MMOL/L (3.6-5.0)
[2020-12-27 03:21] LABS: CALCIUM 8.5 MG/DL (8.5-10.1)
[2020-12-27 03:26] LABS: CREATININE SERUM 1.32 MG/DL (0.60-1.30)
[2020-12-27 03:28] LABS: MAGNESIUM 1.9 MG/DL (1.6-2.4)
--- NOTE | 2020-12-27 04:49 | Pulmonary Consultation ---
History of Present Illness History of Present Illness Date Seen by Provider: Dec 27, 2020 Time Seen by Provider: 04:44 Date of Admission Allergies and Home Medications Allergies Coded Allergies: No Known Drug Allergies (Unverified , 12/23/20) Home Medications Albuterol Sulfate 6.7 Gm Hfa.aer.ad, 2 PUFF INH Q6H Prescribed by: VALERIE ARREOLA on 12/23/201906 Benzonatate 100 Mg Capsule, 200 MG PO TID Prescribed by: VALERIE ARREOLA on 12/23/201906 Doxycycline Hyclate 100 Mg Tablet, 100 MG PO BID Prescribed by: VALERIE ARREOLA on 12/23/201906 Prednisone 20 Mg Tab, 40 MG PO DAILY Prescribed by: VALERIE ARREOLA on 12/23/201906 Past Kmterdd-Vjklcs-Ozdkri Hx Patient Social History Alcohol Use: Denies Use Drug of Choice: Denies Smoking Status: Unknown if Ever Smoked 2nd Hand Smoke Exposure: No Recent Infectious Disease Expo: No Recent Hopitalizations: No Have you traveled recently?: No Seasonal Allergies Seasonal Allergies: No Past Medical History Surgeries: No Respiratory: Yes Sleep Apnea, COPD Currently Using CPAP: Yes Cardiac: Yes High Cholesterol, Hypertension Neurological: No Genitourinary: No Gastrointestinal: No Musculoskeletal: No Endocrine: Yes Diabetes, Non-Insulin dep HEENT: No Cancer: No Psychosocial: No Integumentary: Yes (Skin Tags) Blood Disorders: No Review of Systems Time Seen by Provider: 04:49 Sepsis Event Evaluation Height, Weight, BMI Height: '" Weight: lbs. oz. kg; 36.46 BMI Method: Exam Exam Vital Signs Date Time Temp Pulse Resp B/P (MAP) Pulse Ox O2 Delivery O2 Flow Rate FiO2 12/27/20 03:00 NIV Bilevel 50.00 12/27/20 02:43 101 30 96 60.00 12/27/20 02:00 71 24 125/71 (89) 100 NIV Bilevel 60.00 12/27/20 01:00 70 12/27/20 01:00 69 11 109/58 (76) 99 NIV Bilevel 60.00 12/27/20 00:00 71 9 113/62 (82) 100 NIV Bilevel 60.00 12/27/20 00:00 97 NIV Bilevel 60 12/26/20 23:54 36.8 NIV Bilevel 60.00 12/26/20 23:00 82 14 129/66 (85) 99 High Flow N/C 5.00 12/26/20 22:43 85 16 96 60.00 12/26/20 22:37 94 High Flow N/C 6.00 12/26/20 22:00 96 22 142/90 (107) 89 High Flow N/C 5.00 12/26/20 21:00 95 20 160/87 (110) 91 High Flow N/C 5.00 12/26/20 20:30 High Flow N/C 5.00 12/26/20 20:00 81 14 165/97 (124) 98 NIV Bilevel 60.00 12/26/20 20:00 98 NIV Bilevel 60 12/26/20 19:00 NIV Bilevel 60.00 12/26/20 19:00 37.2 12/26/20 19:00 81 12/26/20 19:00 81 25 151/91 (115) 99 NIV Bilevel 60.00 12/26/20 18:55 NIV Bilevel 60.00 12/26/20 18:03 82 26 100 80.00 12/26/20 17:40 86 12/26/20 17:30 98 NIV Bilevel 80 12/26/20 17:15 142/84 (103) NIV Bilevel 80.00 12/26/20 16:38 92 25 139/79 98 12/26/20 12:34 39.5 123 25 141/86 (104) 92 Nasal Cannula 12/26/20 12:34 Nasal Cannula 4.00 I & O 12/27/20 07:00 Intake Total 1865 ml Output Total 1050 ml Balance 815 ml Height & Weight Height: '" Weight: lbs. oz. kg; 36.46 BMI Method: Respiratory: Chest Non Tender, Lungs Clear, Normal Breath Sounds, No Accessory Muscle Use, Respiratory Distress Cardiovascular: Regular Rate, Rhythm, No Edema, Normal Peripheral Pulses Capillary Refill: Less Than 3 Seconds Peripheral Pulses: 2+ Dorsalis Pedis (R), 2+ Left Dors-Pedis (L) Gastrointestinal: non tender, soft Results Lab Laboratory Tests 12/26/20 12:30 12/26/20 18:15 12/27/20 02:44 Assessment/Plan Assessment/Plan Acute COVID 19 PNA -Dx 12/16 - failed out pt tx. -Decadron -CVP -Self proning Acute respiratory failure secondary to COVID -Currently on BiPAp -Trial to NC vs Vapotherm. Acute renal failure -Hold Lisinopril -IVF and monitor Pneumonia -Continue azithromycin and Rocephin DM -Accu checks -Hold metformin HTN -Start hydralazine PRN JANET FALCON DO Dec 27, 2020 04:49
[2020-12-27] MEDS: inSUlin ASPART (NovoLOG) 1 UNIT/0.01 ML (CHARGE PER UNIT) SC SCH ×5 (05:44→22:08)
[2020-12-27 07:44] VITALS: BP 137/82
[2020-12-27] MEDS: RT-ALBUTEROL INHALER HFA (VENTOLIN HFA) 18 GM IH SCH ×5 (07:44→21:24)
[2020-12-27] MEDS: UMECLIDINIUM BROMIDE (INCRUSE ELLIPTA) 7'S IH SCH (07:48)
[2020-12-27] MEDS ORDERED: hydrALAZINE (APESOLINE) 20 MG/ML VIAL IV SCH (08:00)
[2020-12-27] MEDS ORDERED: hydrALAZINE (APESOLINE) 20 MG/ML VIAL IV PRN (08:15)
[2020-12-27] MEDS: cefTRIAXone FOR IV USE 1,000 MG in WATER (STERILE) FOR INJECTION 10 ML IV SCH (08:43)
[2020-12-27] MEDS: PANTOPRAZOLE 40 MG (PROTONIX) VIAL IV SCH (08:43)
[2020-12-27] MEDS: AZITHROMYCIN INJECTION 250 MG in NS (IVPB) 250 ML IV SCH (08:44)
[2020-12-27] MEDS ORDERED: ENOXAPARIN 40 MG/0.4 ML (LOVENOX) SYR SC SCH (09:00)
--- NOTE | 2020-12-27 09:27 | Diagnostic Imaging Report ---
EXAMINATION: Portable semi-erect AP chest at 3:33 AM. INDICATION: Dyspnea, Covid. FINDINGS: The appearance of the chest has worsened since the prior exam of 12/17/2020 as a prominent area of increased density has developed in the right mid lung and along the periphery of the left upper lobe and left lower lobe. These findings are most likely secondary to pneumonia/atelectasis related to the patient's diagnosis of Covid 19. The heart is stable in size. The mediastinum is not widened. The osseous structures are intact. IMPRESSION: The appearance of the chest has worsened since the prior study as there is greater involvement of both lungs by pneumonia/atelectasis. A followup study would be recommended for continued evaluation. The report was faxed to Infection Control by [email or web address]@9:28 AM. Dictated by: Dictated on workstation # [id number]
[2020-12-27 10:48] VITALS: BP 137/85
--- NOTE | 2020-12-27 11:04 | History & Physical ---
HPI History of Present Illness: 65 yo male came to the ER due to worsening shortness of breath and hypoxia, with known COVID19, he had been checking pulse ox at home and was dropping. He started with symptoms on 12/16 and had positive test on 12/23. His symptoms have mostly been cough, shortness of breath and high fever. Source: patient Date seen by provider: Dec 27, 2020 Time Seen by Provider: 08:30 Attending Physician Grant Das MD PCP Self,Alber FERGUSON Consult Date of Admission Dec 26, 2020 at 17:13 Home Medications Home Medications Reviewed patient Home Medication Reconciliation performed by pharmacy medication reconciliations scale technician and/or nursing. Patients Allergies have been reviewed. Allergies Coded Allergies: No Known Drug Allergies (Unverified , 12/23/20) OIL-Dgpnxw-Nuhnel Hx Patient Social History Drug of Choice: Denies Smoking Status: Never a Smoker 2nd Hand Smoke Exposure: No Recent Hopitalizations: No Alcohol Use?: Yes (rare) Have you traveled recently?: No Past Medical History PMHx: Diabetes Hypertension Hyperlipidemia Family Medical History Significant Family History: Heart Disease Review of Systems ([facility]) Constitutional: No fever, No malaise EENTM: No nose congestion, No throat pain Respiratory: cough, short of breath Cardiovascular: No chest pain Gastrointestinal: No abdominal pain, No constipation, No nausea, No vomiting Genitourinary: No dysuria Musculoskeletal: No joint pain, No muscle pain Skin: No rash Psychiatric/Neurological: No Symptoms Reported Reviewed Test Results Reviewed Test Results Lab Laboratory Tests Test 12/26/20 12:30 12/26/20 13:37 12/26/20 17:58 12/26/20 18:15 Range/Units White Blood Count 8.9 7.2 4.3-11.0 10^3/uL Red Blood Count 4.09 L 3.81 L 4.30-5.52 10^6/uL Hemoglobin 12.7 L 11.7 L 13.3-17.7 g/dL Hematocrit 37 L 36 L 40-54 % Mean Corpuscular Volume 91 94 80-99 fL Mean Corpuscular Hemoglobin 31 31 25-34 pg Mean Corpuscular Hemoglobin Concent 34 33 32-36 g/dL Red Cell Distribution Width 13.6 13.7 10.0-14.5 % Platelet Count 248 207 130-400 10^3/uL Mean Platelet Volume 10.2 10.4 9.0-12.2 fL Immature Granulocyte % (Auto) 1 1 % Neutrophils (%) (Auto) 84 H 87 H 42-75 % Lymphocytes (%) (Auto) 11 L 10 L 12-44 % Monocytes (%) (Auto) 5 3 0-12 % Eosinophils (%) (Auto) 0 0 0-10 % Basophils (%) (Auto) 0 0 0-10 % Neutrophils # (Auto) 7.5 6.3 1.8-7.8 10^3/uL Lymphocytes # (Auto) 1.0 0.7 L 1.0-4.0 10^3/uL Monocytes # (Auto) 0.4 0.2 0.0-1.0 10^3/uL Eosinophils # (Auto) 0.0 0.0 0.0-0.3 10^3/uL Basophils # (Auto) 0.0 0.0 0.0-0.1 10^3/uL Immature Granulocyte # (Auto) 0.1 0.0 0.0-0.1 10^3/uL Prothrombin Time 13.3 12.2-14.7 SEC INR Comment 1.0 0.8-1.4 Activated Partial Thromboplast Time 28 24-35 SEC D-Dimer 1.23 H 0.00-0.49 UG/ML Blood Gas Puncture Site LT RADIAL LT RAD Blood Gas Patient Temperature 103.1 37 Arterial Blood pH 7.49 H 7.40 7.37-7.43 Arterial Blood Partial Pressure CO2 34 L 39 35-45 MMHG Arterial Blood Partial Pressure O2 58 L 221 H 79-93 MMHG Arterial Blood HCO3 26 23 23-27 MMOL/L Arterial Blood Total CO2 26.9 24.3 21.0-31.0 MMOL/L Arterial Blood Oxygen Saturation 92 L 100 94-100 % Arterial Blood Base Excess 2.8 H -1.1 -2.5-2.5 MMOL/L Janak Test POSITIVE POS Blood Gas Ventilator Setting NO NO Blood Gas Inspired Oxygen ROOM AIR NA Sodium Level 130 L 132 L 135-145 MMOL/L Potassium Level 4.2 4.5 3.6-5.0 MMOL/L Chloride Level 93 L 95 L 98-107 MMOL/L Carbon Dioxide Level 25 23 21-32 MMOL/L Anion Gap 12 14 5-14 MMOL/L Blood Urea Nitrogen 23 H 22 H 7-18 MG/DL Creatinine 1.48 H 1.55 H 0.60-1.30 MG/DL Estimat Glomerular Filtration Rate 48 46 BUN/Creatinine Ratio 16 14 Glucose Level 253 H 309 H 70-105 MG/DL Lactic Acid Level 1.96 1.74 0.50-2.00 MMOL/L Calcium Level 8.5 8.3 L 8.5-10.1 MG/DL Corrected Calcium 8.8 8.5-10.1 MG/DL Total Bilirubin 0.4 0.1-1.0 MG/DL Aspartate Amino Transf (AST/SGOT) 99 H 5-34 U/L Alanine Aminotransferase (ALT/SGPT) 71 H 0-55 U/L Alkaline Phosphatase 48 40-136 U/L Troponin I < 0.30 <0.30 NG/ML C-Reactive Protein 6.76 H <0.50 MG/DL Pro-B-Type Natriuretic Peptide 53.6 <75.0 PG/ML Total Protein 7.3 6.4-8.2 GM/DL Albumin 3.6 3.2-4.5 GM/DL Procalcitonin 0.30 H 0.31 H <0.10 NG/ML Urine Color YELLOW Urine Clarity CLEAR Urine pH 6.0 5-9 Urine Specific [place] 1.025 H 1.016-1.022 Urine Protein 2+ H NEGATIVE Urine Glucose (UA) NEGATIVE NEGATIVE Urine Ketones NEGATIVE NEGATIVE Urine Nitrite NEGATIVE NEGATIVE Urine Bilirubin NEGATIVE NEGATIVE Urine Urobilinogen 0.2 < = 1.0 MG/DL Urine Leukocyte Esterase NEGATIVE NEGATIVE Urine RBC (Auto) 3+ H NEGATIVE Urine RBC RARE /HPF Urine WBC RARE /HPF Urine Squamous Epithelial Cells NONE /HPF Urine Crystals PRESENT H /LPF Urine Amorphous Sediment FEW COLLIN URATES H /LPF Urine Bacteria NEGATIVE /HPF Urine Casts PRESENT /LPF Urine Granular Casts 0-2 H /LPF Urine Mucus SMALL H /LPF Urine Culture Indicated NO Phosphorus Level 4.0 2.3-4.7 MG/DL Magnesium Level 1.8 1.6-2.4 MG/DL Test 12/26/20 23:50 12/27/20 02:44 Range/Units Glucometer 291 H 70-110 MG/DL White Blood Count 8.6 4.3-11.0 10^3/uL Red Blood Count 3.78 L 4.30-5.52 10^6/uL Hemoglobin 11.6 L 13.3-17.7 g/dL Hematocrit 35 L 40-54 % Mean Corpuscular Volume 93 80-99 fL Mean Corpuscular Hemoglobin 31 25-34 pg Mean Corpuscular Hemoglobin Concent 33 32-36 g/dL Red Cell Distribution Width 13.3 10.0-14.5 % Platelet Count 232 130-400 10^3/uL Mean Platelet Volume 10.3 9.0-12.2 fL Immature Granulocyte % (Auto) 1 % Neutrophils (%) (Auto) 83 H 42-75 % Lymphocytes (%) (Auto) 13 12-44 % Monocytes (%) (Auto) 4 0-12 % Eosinophils (%) (Auto) 0 0-10 % Basophils (%) (Auto) 0 0-10 % Neutrophils # (Auto) 7.1 1.8-7.8 10^3/uL Lymphocytes # (Auto) 1.1 1.0-4.0 10^3/uL Monocytes # (Auto) 0.4 0.0-1.0 10^3/uL Eosinophils # (Auto) 0.0 0.0-0.3 10^3/uL Basophils # (Auto) 0.0 0.0-0.1 10^3/uL Immature Granulocyte # (Auto) 0.1 0.0-0.1 10^3/uL Sodium Level 131 L 135-145 MMOL/L Potassium Level 4.1 3.6-5.0 MMOL/L Chloride Level 97 L 98-107 MMOL/L Carbon Dioxide Level 21 21-32 MMOL/L Anion Gap 13 5-14 MMOL/L Blood Urea Nitrogen 21 H 7-18 MG/DL Creatinine 1.32 H 0.60-1.30 MG/DL Estimat Glomerular Filtration Rate 55 BUN/Creatinine Ratio 16 Glucose Level 273 H 70-105 MG/DL Calcium Level 8.5 8.5-10.1 MG/DL Phosphorus Level 3.0 2.3-4.7 MG/DL Magnesium Level 1.9 1.6-2.4 MG/DL Radiology CXR 12/26: IMPRESSION: There is slightly greater involvement of the left lung base by pneumonia/atelectasis. The overall appearance of the chest has not changed significantly otherwise. Physical Exam-([facility]) Physical Exam Vital Signs VS - Last 72 Hours, by Label 12/26/20 12/26/20 12/26/20 12/26/20 12:34 12:34 16:38 17:15 Temp 39.5 Pulse 123 92 Resp 25 25 B/P (MAP) 141/86 (104) 139/79 142/84 (103) Pulse Ox 92 98 O2 Delivery Nasal Cannula Nasal Cannula NIV Bilevel O2 Flow Rate 4.00 80.00 12/26/20 12/26/20 12/26/20 12/26/20 17:30 17:40 18:03 18:55 Pulse 86 82 Resp 26 Pulse Ox 98 100 O2 Delivery NIV Bilevel NIV Bilevel O2 Flow Rate 80.00 60.00 FiO2 80 12/26/20 12/26/20 12/26/20 12/26/20 19:00 19:00 19:00 19:00 Temp 37.2 Pulse 81 81 Resp 25 B/P (MAP) 151/91 (115) Pulse Ox 99 O2 Delivery NIV Bilevel NIV Bilevel O2 Flow Rate 60.00 60.00 12/26/20 12/26/20 12/26/20 12/26/20 20:00 20:00 20:30 21:00 Pulse 81 95 Resp 14 20 B/P (MAP) 165/97 (124) 160/87 (110) Pulse Ox 98 98 91 O2 Delivery NIV Bilevel NIV Bilevel High Flow N/C High Flow N/C O2 Flow Rate 60.00 5.00 5.00 FiO2 60 12/26/20 12/26/20 12/26/20 12/26/20 22:00 22:37 22:43 23:00 Pulse 96 85 82 Resp 22 16 14 B/P (MAP) 142/90 (107) 129/66 (85) Pulse Ox 89 94 96 99 O2 Delivery High Flow N/C High Flow N/C High Flow N/C O2 Flow Rate 5.00 6.00 60.00 5.00 12/26/20 12/27/20 12/27/20 12/27/20 23:54 00:00 00:00 01:00 Temp 36.8 Pulse 71 69 Resp 9 11 B/P (MAP) 113/62 (82) 109/58 (76) Pulse Ox 97 100 99 O2 Delivery NIV Bilevel NIV Bilevel NIV Bilevel NIV Bilevel O2 Flow Rate 60.00 60.00 60.00 FiO2 60 12/27/20 12/27/20 12/27/20 12/27/20 01:00 02:00 02:43 03:00 Pulse 70 71 101 Resp 24 30 B/P (MAP) 125/71 (89) Pulse Ox 100 96 O2 Delivery NIV Bilevel NIV Bilevel O2 Flow Rate 60.00 60.00 50.00 12/27/20 12/27/20 12/27/20 12/27/20 04:00 04:00 04:00 06:00 Temp 37.0 Pulse 75 75 Resp 23 19 B/P (MAP) 129/80 (96) 131/78 (95) Pulse Ox 94 98 97 O2 Delivery NIV Bilevel NIV Bilevel NIV Bilevel NIV Bilevel O2 Flow Rate 50.00 50.00 50.00 FiO2 50 12/27/20 12/27/20 12/27/20 12/27/20 06:55 07:00 07:44 07:48 Pulse 75 74 76 Resp 21 24 B/P (MAP) 137/87 (104) Pulse Ox 97 96 96 O2 Delivery NIV Bilevel High Flow N/C O2 Flow Rate 50.00 40.00 6.00 12/27/20 12/27/20 12/27/20 12/27/20 08:00 08:00 08:30 09:00 Temp 36.0 Pulse 101 92 Resp 40 20 B/P (MAP) 146/69 (94) 140/83 (102) Pulse Ox 95 92 O2 Delivery High Flow N/C NIV Bilevel High Flow N/C O2 Flow Rate 6.00 6.00 FiO2 50 12/27/20 12/27/20 10:00 10:48 Pulse 80 80 Resp 26 28 B/P (MAP) 137/85 (102) Pulse Ox 95 96 O2 Delivery High Flow N/C O2 Flow Rate 6.00 40.00 Capillary Refill : Less Than 3 Seconds General Appearance: mild distress Respiratory: no accessory muscle use, rales (bibasilar) Cardiovascular: regular rate, rhythm, no murmur Gastrointestinal: normal bowel sounds, soft; No tenderness Extremities: no pedal edema Neurologic/Psychiatric: alert, normal mood/affect Skin: normal color, warm/dry Assessment/Plan Assessment/Plan Admission Status: Inpatient Order (span 2 midnights) Reason for Inpatient Admission: Acute respiratory failure secondary to COVID19 (1) Acute respiratory failure with hypoxemia Status: Acute Assessment & Plan: Secondary to COVID19, requiring bipap. Appreciate Pulmonology recommendations. (2) COVID-19 Status: Acute Assessment & Plan: Dexamethasone. Convalescent plasma ordered per Pulm. Proning as able. Respiratory support as needed. (3) Elevated d-dimer Status: Acute Assessment & Plan: Likely related to infection rather than thrombosis, had CTA on 12/23 in ER that was negative for PE. Monitor closely. (4) Pneumonia Status: Acute Qualifiers: Qualified Codes: J18.9 - Pneumonia, unspecified organism (5) Acute renal insufficiency Status: Acute (6) Anemia Status: Acute Assessment & Plan: Check iron studies and peripheral smear (7) Diabetes Status: Chronic Assessment & Plan: Sliding scale insulin. Hold home meds due to acute renal insufficiency. Qualifiers: Qualified Codes: E11.65 - Type 2 diabetes mellitus with hyperglycemia (8) Hypertension Status: Chronic Assessment & Plan: Hold home lisinopril due to ISAURO. Qualifiers: Qualified Codes: I10 - Essential (primary) hypertension (9) Hyperlipidemia Status: Chronic Assessment & Plan: Hold statin with acute transaminitis (10) Morbid obesity Status: Chronic (11) Transaminitis Status: Acute Assessment & Plan: Likely secondary to COVID infection, recheck LFTs tomorrow. (12) Sleep apnea Status: Chronic Assessment & Plan: On cpap chronically at home. Qualifiers: Qualified Codes: G47.33 - Obstructive sleep apnea (adult) (pediatric) (13) DVT prophylaxis Status: Acute Assessment & Plan: Enoxaparin GRANT DAS MD Dec 27, 2020 11:04
[2020-12-27] MEDS ORDERED: LISI1TAB46 PO (11:16)
[2020-12-27] MEDS ORDERED: PIOG30TA71 PO (11:16)
[2020-12-27] MEDS ORDERED: ALLO300T2 PO (11:16)
[2020-12-27] MEDS ORDERED: METF-399 PO (11:16)
[2020-12-27] MEDS ORDERED: SIMV40TA25 PO (11:16)
[2020-12-27] MEDS ORDERED: GLMP2T PO (11:16)
[2020-12-27] MEDS: LACTATED RINGERS 1,000 ML IV SCH ×2 (15:26→16:11)
[2020-12-27] MEDS ORDERED: BENZ100C18 PO (15:50)
[2020-12-27] MEDS ORDERED: PRD20T PO (15:50)
[2020-12-27] MEDS ORDERED: RT-ALBUINH IH (15:50)
[2020-12-27] MEDS ORDERED: DOXY100C2 PO (15:50)
[2020-12-27] MEDS ORDERED: ASPI-1238 PO (15:56)
[2020-12-27] MEDS: ENOXAPARIN 40 MG/0.4 ML (LOVENOX) SYR SC SCH (18:03)
[2020-12-27] MEDS ORDERED: inSUlin ASPART (NovoLOG) 1 UNIT/0.01 ML (CHARGE PER UNIT) ONE (21:04)
[2020-12-27 21:25] VITALS: BP 137/85
[2020-12-27] MEDS ORDERED: ALPRAZolam 0.5 MG (XANAX) TAB ONE (21:53)
[2020-12-27] MEDS ORDERED: ALPRAZolam 0.5 MG (XANAX) TAB PO ONE (22:00)
[2020-12-27 23:36] VITALS: BP 142/83
[2020-12-28] VITALS (9 sets, daily range): BP systolic 102–181; BP diastolic 59–94
[2020-12-28] MEDS: RT-ALBUTEROL INHALER HFA (VENTOLIN HFA) 18 GM IH SCH ×5 (01:58→21:50)
[2020-12-28 03:18] LABS: BASOPHILS % (AUTO) 0 % (0-10); EOSINOPHILS % (AUTO) 0 % (0-10); HEMATOCRIT 35 % (40-54); LYMPHOCYTES % (AUTO) 10 % (12-44); MEAN CORPUSCULAR HEMOGLOBIN 31 pg (25-34); MEAN CORPUSCULAR HGB CONC 32 g/dL (32-36); MEAN CORPUSCULAR VOLUME 96 fL (80-99); MEAN PLATELET VOLUME 10.1 fL (9.0-12.2); MONOCYTES # (AUTO) 0.6 10^3/uL (0.0-1.0); MONOCYTES % (AUTO) 6 % (0-12); NEUTROPHILS % (AUTO) 83 % (42-75); PLATELET COUNT 268 10^3/uL (130-400); WHITE BLOOD COUNT 9.6 10^3/uL (4.3-11.0)
[2020-12-28 03:27] LABS: CHLORIDE 98 MMOL/L (98-107); SODIUM 132 MMOL/L (135-145)
[2020-12-28 03:28] LABS: CALCIUM 8.3 MG/DL (8.5-10.1)
[2020-12-28 03:29] LABS: GLUCOSE 199 MG/DL (70-105); TOTAL PROTEIN 6.8 GM/DL (6.4-8.2)
[2020-12-28 03:30] LABS: CARBON DIOXIDE 21 MMOL/L (21-32)
[2020-12-28 03:31] LABS: BILIRUBIN,TOTAL 0.3 MG/DL (0.1-1.0)
[2020-12-28 03:32] LABS: ABSOLUTE RETIC # 29 10e9/uL (24-90); ALKALINE PHOSPHATASE 34 U/L (40-136); RETICULOCYTE % 0.81 % (0.50-2.40)
[2020-12-28 03:33] LABS: CREATININE SERUM 1.13 MG/DL (0.60-1.30); GFR ESTIMATED > 60
[2020-12-28 03:34] LABS: BILIRUBIN,DIRECT 0.1 MG/DL (0.0-0.3); BILIRUBIN,INDIRECT 0.2 MG/DL; BUN/CREATININE RATIO 18
[2020-12-28 03:36] LABS: ALANINE AMINOTRANSFERASE 61 U/L (0-55); MAGNESIUM 2.1 MG/DL (1.6-2.4)
[2020-12-28 04:29] LABS: BAND NEUTROPHILS 0 %; BASOPHILS % (MANUAL) 0 %; EOSINOPHILS % (MANUAL) 0 %; LYMPHOCYTES % (MANUAL) 8 %; MONOCYTES % (MANUAL) 2 %; NEUTROPHILS % (MANUAL) 88 %; POLYCHROMASIA SLIGHT; REACTIVE LYMPHOCYTES 2 %
--- NOTE | 2020-12-28 04:51 | Pulmonary Progress Note ---
Subjective Time Seen by a Provider: 04:46 Subjective/Events-last exam Currently on 40% BiPAP Sepsis Event Evaluation Height, Weight, BMI Height: '" Weight: lbs. oz. kg; 36.46 BMI Method: Focused Exam Lactate Level 12/26/20 12:30: Lactic Acid Level 1.96 12/26/20 18:15: Lactic Acid Level 1.74 Time of Focused Exam: 1620 Exam Exam Vital Signs Date Time Temp Pulse Resp B/P (MAP) Pulse Ox O2 Delivery O2 Flow Rate FiO2 12/28/20 03:56 95 NIV Bilevel 40 12/28/20 03:52 37.2 NIV Bilevel 40.00 12/28/20 03:00 94 19 107/76 (80) 89 NIV Bilevel 40.00 12/28/20 02:00 72 14 149/88 (112) 97 NIV Bilevel 40.00 12/28/20 01:58 83 16 95 40.00 12/28/20 01:00 74 11 133/87 (103) 96 NIV Bilevel 40.00 12/28/20 01:00 74 12/28/20 00:45 96 NIV Bilevel 40 12/28/20 00:00 80 8 157/93 (114) 99 NIV Bilevel 40.00 12/27/20 23:54 NIV Bilevel 40.00 12/27/20 23:36 89 24 95 40.00 12/27/20 23:00 37.4 Vapotherm 30.00 60.00 12/27/20 23:00 85 16 142/83 (103) 94 Vapotherm 30.00 60.00 12/27/20 22:00 90 11 126/85 (98) 94 Vapotherm 30.00 60.00 12/27/20 21:35 96 Vapotherm 30.00 55 12/27/20 21:25 104 26 95 40.00 12/27/20 21:00 96 156/81 (110) 93 Vapotherm 30.00 60.00 12/27/20 20:32 94 Vapotherm 30.00 60 12/27/20 20:00 100 28 153/91 (108) 94 Vapotherm 30.00 60.00 12/27/20 19:53 103 18 164/96 (123) 97 Vapotherm 30.00 60.00 12/27/20 19:02 100 12/27/20 19:00 37.6 Vapotherm 30.00 60.00 12/27/20 18:13 96 Vapotherm 30.00 60 12/27/20 18:10 Vapotherm 12/27/20 18:00 96 27 170/108 (128) 99 Vapotherm 30.00 60.00 12/27/20 17:00 Vapotherm 30.00 60.00 12/27/20 17:00 90 24 155/86 (109) 98 Vapotherm 30.00 60.00 12/27/20 16:15 95 Vapotherm 30.00 50 12/27/20 16:00 36.6 12/27/20 16:00 102 27 144/79 (100) 90 Vapotherm 30.00 50.00 12/27/20 15:24 Vapotherm 30.00 50.00 12/27/20 15:15 96 Vapotherm 30.00 50 12/27/20 15:00 89 17 165/96 (119) 95 High Flow N/C 6.00 12/27/20 14:00 93 19 155/94 (114) 94 High Flow N/C 6.00 12/27/20 13:00 77 31 133/108 (116) 97 High Flow N/C 6.00 12/27/20 12:55 77 12/27/20 12:00 88 22 141/92 (108) 93 High Flow N/C 6.00 12/27/20 12:00 96 NIV Bilevel 40 12/27/20 11:49 36.4 12/27/20 11:00 81 36 142/126 (131) 96 High Flow N/C 6.00 12/27/20 10:48 80 28 96 40.00 12/27/20 10:00 80 26 137/85 (102) 95 High Flow N/C 6.00 12/27/20 09:00 92 20 140/83 (102) 92 High Flow N/C 6.00 12/27/20 08:30 95 NIV Bilevel 50 12/27/20 08:00 36.0 12/27/20 08:00 101 40 146/69 (94) High Flow N/C 6.00 12/27/20 07:48 96 High Flow N/C 6.00 12/27/20 07:44 76 24 96 40.00 12/27/20 07:00 74 21 137/87 (104) 97 NIV Bilevel 50.00 12/27/20 06:55 75 12/27/20 06:00 75 19 131/78 (95) 97 NIV Bilevel 50.00 I & O 12/28/20 07:00 Intake Total 1135 ml Output Total 1625 ml Balance -490 ml Height & Weight Height: '" Weight: lbs. oz. kg; 36.46 BMI Method: General Appearance: Mild Distress HEENT: PERRL/EOMI Neck: Full Range of Motion, Supple Respiratory: Chest Non Tender, Lungs Clear, Normal Breath Sounds, No Accessory Muscle Use, Respiratory Distress Cardiovascular: Regular Rate, Rhythm, No Edema, Normal Peripheral Pulses Capillary Refill: Less Than 3 Seconds Peripheral Pulses: 2+ Dorsalis Pedis (R), 2+ Left Dors-Pedis (L) Gastrointestinal: normal bowel sounds, soft; No tenderness Extremity: Normal Capillary Refill Neurologic/Psychiatric: Alert Skin: Normal Color, Warm/Dry Lymphatic: No Adenopathy Results Lab Laboratory Tests 12/26/20 12:30 12/26/20 18:15 12/27/20 02:44 12/28/20 03:05 Assessment/Plan Assessment/Plan Acute COVID 19 PNA with hypoxic respiratory failure -Dx 12/16 - failed out pt tx. -Currently on BiPAP 40% -- PRN and HS -Pt is using Vapotherm 60% with Sp02 upper 90's -Decadron -CVP -Self proning Acute renal failure -Hold Lisinopril -IVF and monitor Pneumonia -Continue azithromycin and Rocephin DM -Accu checks -Hold metformin HTN -Start hydralazine PRN JANET FALCON DO Dec 28, 2020 04:51
[2020-12-28] MEDS: inSUlin ASPART (NovoLOG) 1 UNIT/0.01 ML (CHARGE PER UNIT) SC SCH ×4 (06:34→20:42)
--- NOTE | 2020-12-28 07:13 | Diagnostic Imaging Report ---
INDICATION: Shortness of breath COMPARISON: 12/27/20 FINDINGS: Single view of the chest demonstrates unchanged bilateral pulmonary infiltrates. The heart remains prominent. There is no pneumothorax or effusion. Osseous structures stable. IMPRESSION: Unchanged aeration of the lungs. Dictated by: Dictated on workstation # [id number]
[2020-12-28] MEDS: PANTOPRAZOLE 40 MG (PROTONIX) VIAL IV SCH (08:03)
[2020-12-28] MEDS: AZITHROMYCIN INJECTION 250 MG in NS (IVPB) 250 ML IV SCH (08:03)
[2020-12-28] MEDS: cefTRIAXone FOR IV USE 1,000 MG in WATER (STERILE) FOR INJECTION 10 ML IV SCH (08:03)
[2020-12-28] MEDS: UMECLIDINIUM BROMIDE (INCRUSE ELLIPTA) 7'S IH SCH (10:21)
--- NOTE | 2020-12-28 13:15 | Progress Note ---
Subjective Subjective/Events-last exam Afebrile, states he is feeling better this morning. Focused Exam Lactate Level 12/26/20 12:30: Lactic Acid Level 1.96 12/26/20 18:15: Lactic Acid Level 1.74 Time of Focused Exam: 1620 Objective Exam Last Set of Vital Signs Vital Signs Date Time Temp Pulse Resp B/P (MAP) Pulse Ox O2 Delivery O2 Flow Rate FiO2 12/28/20 12:00 37.2 94 20 102/59 (73) 90 Vapotherm 30.00 55.00 12/28/20 10:22 60 Capillary Refill : Less Than 3 Seconds I&O Intake and Output 12/28/20 00:00 Intake Total 1255 ml Output Total 2325 ml Balance -1070 ml Intake Oral 1255 ml Output Urine Total 2325 ml # Bowel Movements 2 General: Alert Lungs: Other (rales bibasilar) Heart: Regular Rate, No Murmurs Neuro: Normal Speech Psych/Mental Status: Mental Status NL, Mood NL Results/Procedures Lab Laboratory Tests 12/27/20 18:02: Glucometer 323H 12/27/20 20:55: Glucometer 275H 12/28/20 03:05: White Blood Count 9.6, Red Blood Count 3.60L, Hemoglobin 11.0L, Hematocrit 35L, Mean Corpuscular Volume 96, Mean Corpuscular Hemoglobin 31, Mean Corpuscular Hemoglobin Concent 32, Red Cell Distribution Width 13.2, Platelet Count 268, Mean Platelet Volume 10.1, Immature Granulocyte % (Auto) 1, Neutrophils (%) (Auto) 83H, Lymphocytes (%) (Auto) 10L, Monocytes (%) (Auto) 6, Eosinophils (%) (Auto) 0, Basophils (%) (Auto) 0, Neutrophils # (Auto) 8.0H, Lymphocytes # (Auto) 1.0, Monocytes # (Auto) 0.6, Eosinophils # (Auto) 0.0, Basophils # (Auto) 0.0, Immature Granulocyte # (Auto) 0.1, Neutrophils % (Manual) 88, Lymphocytes % (Manual) 8, Monocytes % (Manual) 2, Eosinophils % (Manual) 0, Basophils % (Manual) 0, Band Neutrophils 0, Reactive Lymphocytes 2, Percent Immature Platelet Fraction 3.7, Polychromasia SLIGHT, Absolute Reticulocyte Count 29, Percent Reticulocyte Count 0.81, Sodium Level 132L, Potassium Level 5.0, Chloride Level 98, Carbon Dioxide Level 21, Anion Gap 13, Blood Urea Nitrogen 20H, Creatinine 1.13, Estimat Glomerular Filtration Rate > 60, BUN/Creatinine Ratio 18, Glucose Level 199H, Calcium Level 8.3L, Phosphorus Level 3.0, Magnesium Level 2.1, Total Bilirubin 0.3, Direct Bilirubin 0.1, Indirect Bilirubin 0.2, Aspartate Amino Transf (AST/SGOT) 72H, Alanine Aminotransferase (ALT/SGPT) 61H, Alkaline Phosphatase 34L, Total Protein 6.8, Albumin 3.0L 12/28/20 11:42: Glucometer 210H Microbiology 12/26/20 MRSA Screen - Final, Complete MRSA not isolated 12/26/20 Urine Culture - Final, Complete NO GROWTH 12/26/20 Blood Culture - Preliminary, Resulted No growth Radiology CXR 12/26: IMPRESSION: There is slightly greater involvement of the left lung base by pneumonia/atelectasis. The overall appearance of the chest has not changed significantly otherwise. Assessment/Plan Assessment/Plan (1) Acute respiratory failure with hypoxemia Status: Acute Assessment & Plan: Secondary to COVID19, requiring bipap. Appreciate Pulmonology recommendations. 12/28 able to transition to Vapotherm, transferred to floor per critical care. (2) COVID-19 Status: Acute Assessment & Plan: Dexamethasone. Convalescent plasma ordered per Pulm. Proning as able. Respiratory support as needed. (3) Elevated d-dimer Status: Acute Assessment & Plan: Likely related to infection rather than thrombosis, had CTA on 12/23 in ER that was negative for PE. Monitor closely. (4) Pneumonia Status: Acute Qualifiers: Qualified Codes: J18.9 - Pneumonia, unspecified organism (5) Acute renal insufficiency Status: Resolved (6) Anemia Status: Acute Assessment & Plan: Check iron studies and peripheral smear (7) Diabetes Status: Chronic Assessment & Plan: Sliding scale insulin. Hold home meds due to acute renal insufficiency. 12/28 start long acting insulin due to persistent hyperglycemia. Qualifiers: Qualified Codes: E11.65 - Type 2 diabetes mellitus with hyperglycemia (8) Hypertension Status: Chronic Assessment & Plan: Hold home lisinopril due to ISAURO. Qualifiers: Qualified Codes: I10 - Essential (primary) hypertension (9) Hyperlipidemia Status: Chronic Assessment & Plan: Hold statin with acute transaminitis (10) Morbid obesity Status: Chronic (11) Transaminitis Status: Acute Assessment & Plan: Likely secondary to COVID infection, recheck LFTs tomorrow. 12/28 trending down (12) Sleep apnea Status: Chronic Assessment & Plan: On cpap chronically at home. Qualifiers: Qualified Codes: G47.33 - Obstructive sleep apnea (adult) (pediatric) (13) DVT prophylaxis Status: Acute Assessment & Plan: Enoxaparin GRANT DAVILA MD Dec 28, 2020 13:15
[2020-12-28] MEDS ORDERED: NS IV 500 ML 500 ML ONE (15:14)
[2020-12-28] MEDS: ENOXAPARIN 40 MG/0.4 ML (LOVENOX) SYR SC SCH (17:17)
[2020-12-28] MEDS: guaiFENesin (MUCINEX) 600 MG TAB PO SCH (20:40)
[2020-12-29] MEDS: RT-ALBUTEROL INHALER HFA (VENTOLIN HFA) 18 GM IH SCH ×6 (01:56→22:34)
[2020-12-29 03:49] VITALS: BP 142/69
[2020-12-29] MEDS: inSUlin ASPART (NovoLOG) 1 UNIT/0.01 ML (CHARGE PER UNIT) SC SCH ×4 (05:30→21:08)
[2020-12-29 06:13] LABS: HEMOGLOBIN 11.3 g/dL (13.3-17.7); WHITE BLOOD COUNT 7.6 10^3/uL (4.3-11.0)
[2020-12-29 06:48] LABS: BUN/CREATININE RATIO 19; CALCIUM 8.5 MG/DL (8.5-10.1); CARBON DIOXIDE 27 MMOL/L (21-32); CHLORIDE 101 MMOL/L (98-107); CREATININE SERUM 1.08 MG/DL (0.60-1.30); GFR ESTIMATED > 60; GLUCOSE 126 MG/DL (70-105); POTASSIUM 4.4 MMOL/L (3.6-5.0); SODIUM 138 MMOL/L (135-145)
[2020-12-29] MEDS: UMECLIDINIUM BROMIDE (INCRUSE ELLIPTA) 7'S IH SCH (07:06)
[2020-12-29 08:00] VITALS: BP 154/74
[2020-12-29] MEDS ORDERED: WATER (STERILE) FOR INJECTION 10 ML ONE (09:21)
[2020-12-29] MEDS ORDERED: cefTRIAXone 1,000 MG IV (ROCEPHIN) VIAL ONE (09:21)
[2020-12-29] MEDS: cefTRIAXone FOR IV USE 1,000 MG in WATER (STERILE) FOR INJECTION 10 ML IV SCH (09:43)
[2020-12-29] MEDS: PANTOPRAZOLE 40 MG (PROTONIX) VIAL IV SCH (09:43)
[2020-12-29] MEDS: AZITHROMYCIN INJECTION 250 MG in NS (IVPB) 250 ML IV SCH (09:43)
[2020-12-29] MEDS: guaiFENesin (MUCINEX) 600 MG TAB PO SCH ×2 (09:45→21:07)
[2020-12-29 12:00] VITALS: BP 182/82
--- NOTE | 2020-12-29 12:07 | Progress Note ---
Subjective Subjective/Events-last exam Feeling very well, just showered and has been "doing a lot" this morning. Still on vapotherm at 55% FiO2. Focused Exam Lactate Level 12/26/20 12:30: Lactic Acid Level 1.96 12/26/20 18:15: Lactic Acid Level 1.74 Time of Focused Exam: 1620 Objective Exam Last Set of Vital Signs Vital Signs Date Time Temp Pulse Resp B/P (MAP) Pulse Ox O2 Delivery O2 Flow Rate FiO2 12/29/20 10:09 92 Vapotherm 30.00 55 12/29/20 08:00 36.0 78 20 154/74 (100) Capillary Refill : Less Than 3 SecondsLess Than 3 Seconds I&O Intake and Output 12/29/20 00:00 Intake Total 2760 ml Output Total 2875 ml Balance -115 ml Intake Oral 1860 ml IV Total 850 ml Other 50 ml Output Urine Total 2875 ml General: Alert, No Acute Distress Lungs: Other (decreased air movement throughout) Heart: Regular Rate, No Murmurs Neuro: Normal Speech Psych/Mental Status: Mental Status NL, Mood NL Results/Procedures Lab Laboratory Tests 12/28/20 16:11: Glucometer 277H 12/28/20 20:18: Glucometer 241H 12/29/20 05:55: White Blood Count 7.6, Red Blood Count 3.70L, Hemoglobin 11.3L, Hematocrit 34L, Mean Corpuscular Volume 93, Mean Corpuscular Hemoglobin 31, Mean Corpuscular Hemoglobin Concent 33, Red Cell Distribution Width 13.2, Platelet Count 266, Mean Platelet Volume 10.0, Sodium Level 138, Potassium Level 4.4, Chloride Level 101, Carbon Dioxide Level 27, Anion Gap 10, Blood Urea Nitrogen 20H, Creatinine 1.08, Estimat Glomerular Filtration Rate > 60, BUN/Creatinine Ratio 19, Glucose Level 126H, Calcium Level 8.5 Microbiology 12/26/20 MRSA Screen - Final, Complete MRSA not isolated 12/26/20 Urine Culture - Final, Complete NO GROWTH 12/26/20 Blood Culture - Preliminary, Resulted No growth Radiology CXR 12/26: IMPRESSION: There is slightly greater involvement of the left lung base by pneumonia/atelectasis. The overall appearance of the chest has not changed significantly otherwise. Assessment/Plan Assessment/Plan (1) Acute respiratory failure with hypoxemia Status: Acute Assessment & Plan: Secondary to COVID19, requiring bipap. Appreciate Pulmonology recommendations. 12/28 able to transition to Vapotherm, transferred to floor per critical care. (2) COVID-19 Status: Acute Assessment & Plan: Dexamethasone. Convalescent plasma ordered per Pulm. Proning as able. Respiratory support as needed. (3) Elevated d-dimer Status: Acute Assessment & Plan: Likely related to infection rather than thrombosis, had CTA on 12/23 in ER that was negative for PE. Monitor closely. (4) Pneumonia Status: Acute Qualifiers: Qualified Codes: J18.9 - Pneumonia, unspecified organism (5) Acute renal insufficiency Status: Resolved (6) Anemia Status: Acute Assessment & Plan: Check iron studies and peripheral smear Peripheral smear consistent with iron deficiency, but TIBC low, suspect mixture of iron deficiency and chronic disease. Ferritin high but he has acute COVID. Check stool occult blood. Qualifiers: Qualified Codes: D50.9 - Iron deficiency anemia, unspecified (7) Diabetes Status: Chronic Assessment & Plan: Sliding scale insulin. Hold home meds due to acute renal insufficiency. 12/28 start long acting insulin due to persistent hyperglycemia. Qualifiers: Qualified Codes: E11.65 - Type 2 diabetes mellitus with hyperglycemia (8) Hypertension Status: Chronic Assessment & Plan: Hold home lisinopril due to ISAURO. Qualifiers: Qualified Codes: I10 - Essential (primary) hypertension (9) Hyperlipidemia Status: Chronic Assessment & Plan: Hold statin with acute transaminitis (10) Morbid obesity Status: Chronic (11) Transaminitis Status: Acute Assessment & Plan: Likely secondary to COVID infection, recheck LFTs tomorrow. 12/28 trending down (12) Sleep apnea Status: Chronic Assessment & Plan: On cpap chronically at home. Qualifiers: Qualified Codes: G47.33 - Obstructive sleep apnea (adult) (pediatric) (13) DVT prophylaxis Status: Acute Assessment & Plan: Enoxaparin GRANT DAVILA MD Dec 29, 2020 12:07
[2020-12-29 15:58] VITALS: BP 179/81
[2020-12-29] MEDS: ENOXAPARIN 40 MG/0.4 ML (LOVENOX) SYR SC SCH (18:38)
[2020-12-29] MEDS: metFORMIN 500 MG (GLUCOPHAGE) TAB PO SCH (18:38)
[2020-12-29 20:24] VITALS: BP 162/85
[2020-12-29] MEDS ORDERED: NON-FORMULARY MEDICATION 1 EA EA (Metformin HCl 1,000 MG) PO SCH (21:00)
[2020-12-29 23:44] VITALS: BP 139/68
[2020-12-30] MEDS: RT-ALBUTEROL INHALER HFA (VENTOLIN HFA) 18 GM IH SCH ×6 (01:58→21:57)
[2020-12-30 03:21] VITALS: BP 138/71
[2020-12-30] MEDS: inSUlin ASPART (NovoLOG) 1 UNIT/0.01 ML (CHARGE PER UNIT) SC SCH ×4 (05:41→21:20)
[2020-12-30 06:10] LABS: ALBUMIN 3.1 GM/DL (3.2-4.5); CHLORIDE 101 MMOL/L (98-107); POTASSIUM 4.2 MMOL/L (3.6-5.0); SODIUM 137 MMOL/L (135-145)
[2020-12-30 06:11] LABS: CALCIUM 8.4 MG/DL (8.5-10.1)
[2020-12-30 06:13] LABS: GLUCOSE 105 MG/DL (70-105); TOTAL PROTEIN 6.2 GM/DL (6.4-8.2)
[2020-12-30 06:14] LABS: BILIRUBIN,TOTAL 0.4 MG/DL (0.1-1.0); CARBON DIOXIDE 24 MMOL/L (21-32)
[2020-12-30 06:16] LABS: ALKALINE PHOSPHATASE 37 U/L (40-136); CREATININE SERUM 0.93 MG/DL (0.60-1.30); GFR ESTIMATED > 60
[2020-12-30 06:17] LABS: BUN/CREATININE RATIO 22
[2020-12-30 06:19] LABS: ALANINE AMINOTRANSFERASE 138 U/L (0-55)
[2020-12-30 08:00] VITALS: BP 155/92
[2020-12-30] MEDS ORDERED: cefTRIAXone 1,000 MG IV (ROCEPHIN) VIAL ONE (09:57)
[2020-12-30] MEDS ORDERED: WATER (STERILE) FOR INJECTION 10 ML ONE (09:57)
[2020-12-30] MEDS: AZITHROMYCIN INJECTION 250 MG in NS (IVPB) 250 ML IV SCH (10:21)
[2020-12-30] MEDS: PANTOPRAZOLE 40 MG (PROTONIX) VIAL IV SCH (10:22)
[2020-12-30] MEDS: cefTRIAXone FOR IV USE 1,000 MG in WATER (STERILE) FOR INJECTION 10 ML IV SCH (10:22)
[2020-12-30] MEDS: metFORMIN 500 MG (GLUCOPHAGE) TAB PO SCH ×2 (10:22→17:59)
[2020-12-30] MEDS: guaiFENesin (MUCINEX) 600 MG TAB PO SCH ×2 (10:22→21:18)
[2020-12-30 12:00] VITALS: BP 106/55
[2020-12-30] MEDS: UMECLIDINIUM BROMIDE (INCRUSE ELLIPTA) 7'S IH SCH (12:11)
--- NOTE | 2020-12-30 14:37 | Progress Note ---
Subjective Subjective/Events-last exam Afebrile, feeling great, wants to go home, but had an episode of significant hypoxia that required vapotherm to recover. Is back to 4 lpm supplemental oxygen at time of my exam. Focused Exam Time of Focused Exam: 1620 Objective Exam Last Set of Vital Signs Vital Signs Date Time Temp Pulse Resp B/P (MAP) Pulse Ox O2 Delivery O2 Flow Rate FiO2 12/30/20 12:13 2.00 12/30/20 10:25 95 High Flow N/C 12/30/20 08:00 36.0 86 20 155/92 (113) 12/29/20 13:54 45 Capillary Refill : Less Than 3 SecondsLess Than 3 Seconds I&O Intake and Output 12/30/20 00:00 Intake Total 4060 ml Output Total 2100 ml Balance 1960 ml Intake Oral 4060 ml Output Urine Total 2100 ml General: Alert, No Acute Distress Lungs: Other (rales) Heart: Regular Rate, No Murmurs Neuro: Normal Speech Psych/Mental Status: Mental Status NL Results/Procedures Lab Laboratory Tests 12/29/20 15:55: Glucometer 265H 12/29/20 20:11: Glucometer 203H 12/30/20 05:39: Glucometer 104 12/30/20 05:55: Sodium Level 137, Potassium Level 4.2, Chloride Level 101, Carbon Dioxide Level 24, Anion Gap 12, Blood Urea Nitrogen 20H, Creatinine 0.93, Estimat Glomerular Filtration Rate > 60, BUN/Creatinine Ratio 22, Glucose Level 105, Calcium Level 8.4L, Corrected Calcium 9.1, Total Bilirubin 0.4, Aspartate Amino Transf (AST/SGOT) 98H, Alanine Aminotransferase (ALT/SGPT) 138H, Alkaline Phosphatase 37L, Total Protein 6.2L, Albumin 3.1L 12/30/20 10:31: Glucometer 255H Microbiology 12/26/20 MRSA Screen - Final, Complete MRSA not isolated 12/26/20 Urine Culture - Final, Complete NO GROWTH 12/26/20 Blood Culture - Preliminary, Resulted No growth Radiology CXR 12/26: IMPRESSION: There is slightly greater involvement of the left lung base by pneumonia/atelectasis. The overall appearance of the chest has not changed significantly otherwise. Assessment/Plan Assessment/Plan (1) Acute respiratory failure with hypoxemia Status: Acute Assessment & Plan: Secondary to COVID19, requiring bipap. Appreciate Pulmonology recommendations. 12/28 able to transition to Vapotherm, transferred to floor per critical care. 12/30 significantly improved, but still requiring fairly high supplemental oxygen and had significant hypoxia earlier today. He would like to try to work with PT, will see how oxygen does with activity, anticipate possible d/c on Saturday with home O2. (2) COVID-19 Status: Acute Assessment & Plan: Dexamethasone. Convalescent plasma ordered per Pulm. Proning as able. Respiratory support as needed. (3) Elevated d-dimer Status: Acute Assessment & Plan: Likely related to infection rather than thrombosis, had CTA on 12/23 in ER that was negative for PE. Monitor closely. (4) Pneumonia Status: Acute Qualifiers: Qualified Codes: J18.9 - Pneumonia, unspecified organism (5) Acute renal insufficiency Status: Resolved (6) Anemia Status: Acute Assessment & Plan: Check iron studies and peripheral smear Peripheral smear consistent with iron deficiency, but TIBC low, suspect mixture of iron deficiency and chronic disease. Ferritin high but he has acute COVID. Check stool occult blood. Qualifiers: Qualified Codes: D50.9 - Iron deficiency anemia, unspecified (7) Diabetes Status: Chronic Assessment & Plan: Sliding scale insulin. Hold home meds due to acute renal insufficiency. 12/28 start long acting insulin due to persistent hyperglycemia. 12/30 resume home metformin Qualifiers: Qualified Codes: E11.65 - Type 2 diabetes mellitus with hyperglycemia (8) Hypertension Status: Chronic Assessment & Plan: Hold home lisinopril due to ISAURO. Qualifiers: Qualified Codes: I10 - Essential (primary) hypertension (9) Hyperlipidemia Status: Chronic Assessment & Plan: Hold statin with acute transaminitis (10) Morbid obesity Status: Chronic (11) Transaminitis Status: Acute Assessment & Plan: Likely secondary to COVID infection, recheck LFTs tomorrow. 12/28 trending down / increased minimally, follow (12) Sleep apnea Status: Chronic Assessment & Plan: On cpap chronically at home. Qualifiers: Qualified Codes: G47.33 - Obstructive sleep apnea (adult) (pediatric) (13) DVT prophylaxis Status: Acute Assessment & Plan: Enoxaparin GRANT DAVILA MD Dec 30, 2020 14:37
--- NOTE | 2020-12-30 15:16 | Physical Therapy Evaluation ---
PT Evaluation-General Medical Diagnosis Admission Date Dec 26, 2020 at 17:13 Medical Diagnosis: covid PNA Onset Date: Dec 26, 2020 Therapy Diagnosis Therapy Diagnosis: impaired endurance Precautions Precautions/Isolations: Airborne Isolation Referral Physician: Thiago Reason for Referral: Evaluation/Treatment Medical History Additional Medical History Past Medical History Surgeries: No Respiratory: Yes Sleep Apnea, COPD Currently Using CPAP: Yes Cardiac: Yes High Cholesterol, Hypertension Neurological: No Genitourinary: No Gastrointestinal: No Musculoskeletal: No Endocrine: Yes Diabetes, Non-Insulin dep Reviewed History: Yes Social History Home: Single Level Current Living Status: Spouse Entry Into Home: Stairs Without Railing PT Steps Into Home: 3 Prior Prior Level of Function SCALE: Activities may be completed with or without assistive devices. 5-Vfvjvmdpzj-nfhvgrl completes the activity by him/herself with no assistance from a helper. 5-Set-up or Clean-up Assistance-helper sets up or cleans up; patient completes activity. [place] assists only prior to or following the activity. 4-Supervision or Touching Assistance-helper provides verbal cues and/or touchi ng/steadying and/or contact guard assistance as patient completes activity. Assistance may be provided throughout the activity or intermittently. 3-Partial/Moderate Assistance-helper does LESS THAN HALF the effort. [place] lifts, holds or supports trunk or limbs, but provides less than half the effort. 2-Substantial/Maximal Assistance-helper does MORE THAN HALF the effort. [place] lifts or holds trunk or limbs and provides more than half the effort. 1-Kbdtyadww-zlegoy does ALL the effort. Patient does none of the effort to complete the activity. Or, the assistance of 2 or more helpers is required for the patient to complete the activity. If activity was not attempted, code reason: 7-Patient Refused. 9-Not Applicable-not attempted and the patient did not perform the activity before the current illness, exacerbation or injury. 10-Not Attempted due to Environmental Limitations-(lack of equipment, weather restraints, etc.). 88-Not Attempted due to Medical Conditions or Safety Concerns. Bed Mobility: 6 Transfers (B,C,W/C): 6 Gait: 6 Stairs: 6 Indoor Mobility (Ambulation): Independent Stairs: Independent PT Evaluation-Current Subjective Patient in recliner pre tx, agrees to PT, no complaints of pain. Proper PPE donned before entering room. Pt/Family Goals "to go home" Objective Patient Orientation: Person, Place, Situation, Normal For Age Attachments: Oxygen ROM/Strength ROM Lower Extremities WNL Strength Lower Extremities 5/5 gross BLE Sensory Vision: Wears Glasses Hearing: Functional Sensation Right Lower Extremit: Intact Sensation Left Lower Extremity: Intact Transfers Sit to Stand (QC): 6 Chair/Meo-ss-Yroaa Xfer(QC): 6 Gait Does the Patient Walk?: Yes Mode of Locomotion: Walk Anticipated Mode of Locomotion: Walk Walk 10 feet (QC): 6 Walk 50 ft with 2 Turns(QC): 6 Distance: 80' Gait Assistive Device: None Comments/Gait Description Patient ambulated 80' about his room with independence. He had no unsteadiness or LOB but did eventually get SOB and needed to sit to recover, also he started coughing a lot. He recovered quickly after about 10 seconds. Balance Sitting Static: Normal Sitting Dynamic: Normal Standing Static: Normal Standing Dynamic: Normal Treatment balance good, patient was able to perform 5 heel raises without holding onto anything without LOB Assessment/Needs Patient has impaired endurance. Patient in recliner post tx with nurse call, phone, tray, all needs met. Patient can ambulate short distances before needing to rest. 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 Time Frame: Jan 06, 2021 Roll Left & Right (QC): 6 Sit to Lying (QC): 6 Lying-Sitting on Side/Bed(QC): 6 Sit to Stand (QC): 6 Chair/Lwe-lq-Ztwdq Xfer(QC): 6 Toilet Transfer (QC): 6 Walk 10 feet (QC): 6 Walk 50ft with 2 Turns (QC): 6 Walk 150 ft (QC): 6 PT Plan Problem List Problem List: Activity Tolerance, Functional Strength, Safety, Balance, Gait, Transfer Treatment/Plan Treatment Plan: Continue Plan of Care Treatment Plan: Education, Functional Activity Bhupendra, Functional Strength, Gait, Safety, Therapeutic Exercise, Transfers Treatment Duration: Jan 06, 2021 Frequency: 6 times per week Estimated Hrs Per Day: .25 hour per day Patient and/or Family Agrees t: Yes Safety Risks/Education Patient Education: Gait Training, Transfer Techniques, Correct Positioning, Safety Issues Teaching Recipient: Patient Teaching Methods: Demonstration, Discussion Response to Teaching: Reinforcement Needed Discharge Recommendations Plan Patient will perform bed mobility and transfer training, balance and endurance training, functional strengthening, stair training, gait training, and education, to improve functional mobility and independence at home. Therapy Discharge Recommendati: Home & Family Time/GCodes Time In: 1455 Time Out: 1505 Total Billed Treatment Time: 10 Total Billed Treatment 1 visit DESTINI Kennedy' SHANNON NOYOLA PT Dec 30, 2020 15:16
[2020-12-30 16:00] VITALS: BP 145/82
[2020-12-30] MEDS: ENOXAPARIN 40 MG/0.4 ML (LOVENOX) SYR SC SCH (17:59)
[2020-12-30 20:00] VITALS: BP 141/82
[2020-12-31] VITALS (7 sets, daily range): BP systolic 126–162; BP diastolic 74–85
[2020-12-31] MEDS: RT-ALBUTEROL INHALER HFA (VENTOLIN HFA) 18 GM IH SCH ×6 (02:15→21:30)
[2020-12-31] MEDS: inSUlin ASPART (NovoLOG) 1 UNIT/0.01 ML (CHARGE PER UNIT) SC SCH ×4 (05:32→20:37)
[2020-12-31 06:08] LABS: HEMOGLOBIN 11.6 g/dL (13.3-17.7); MEAN PLATELET VOLUME 10.3 fL (9.0-12.2); WHITE BLOOD COUNT 7.5 10^3/uL (4.3-11.0)
[2020-12-31 06:26] LABS: ALANINE AMINOTRANSFERASE 143 U/L (0-55); ALKALINE PHOSPHATASE 40 U/L (40-136); BILIRUBIN,TOTAL 0.4 MG/DL (0.1-1.0); BUN/CREATININE RATIO 21; CALCIUM 8.5 MG/DL (8.5-10.1); CARBON DIOXIDE 22 MMOL/L (21-32); CHLORIDE 101 MMOL/L (98-107); GFR ESTIMATED > 60; GLUCOSE 139 MG/DL (70-105); POTASSIUM 4.4 MMOL/L (3.6-5.0); SODIUM 135 MMOL/L (135-145); TOTAL PROTEIN 6.2 GM/DL (6.4-8.2)
[2020-12-31] MEDS: UMECLIDINIUM BROMIDE (INCRUSE ELLIPTA) 7'S IH SCH (06:35)
[2020-12-31] MEDS ORDERED: WATER (STERILE) FOR INJECTION 10 ML ONE (08:47)
[2020-12-31] MEDS ORDERED: cefTRIAXone 1,000 MG IV (ROCEPHIN) VIAL ONE (08:47)
[2020-12-31] MEDS: PANTOPRAZOLE 40 MG (PROTONIX) VIAL IV SCH (09:39)
[2020-12-31] MEDS: cefTRIAXone FOR IV USE 1,000 MG in WATER (STERILE) FOR INJECTION 10 ML IV SCH (09:40)
[2020-12-31] MEDS: guaiFENesin (MUCINEX) 600 MG TAB PO SCH ×2 (09:40→20:37)
[2020-12-31] MEDS: metFORMIN 500 MG (GLUCOPHAGE) TAB PO SCH ×2 (09:40→17:49)
[2020-12-31] MEDS: AZITHROMYCIN INJECTION 250 MG in NS (IVPB) 250 ML IV SCH (11:01)
--- NOTE | 2020-12-31 12:05 | Physical Therapy Daily Note ---
PT Daily Note-Current Subjective Agrees to PT. Reports he is mobilizing in his room indep. Expresses no complaints or concerns. Hopes to go home on Saturday. Reports he is feeling much better and stronger. Transfers SCALE: Activities may be completed with or without assistive devices. 5-Zvaqqctsxw-ypqdurc completes the activity by him/herself with no assistance from a helper. 5-Set-up or Clean-up Assistance-helper sets up or cleans up; patient completes activity. [place] assists only prior to or following the activity. 4-Supervision or Touching Assistance-helper provides verbal cues and/or touching/steadying and/or contact guard assistance as patient completes activity. Assistance may be provided throughout the activity or intermittently. 3-Partial/Moderate Assistance-helper does LESS THAN HALF the effort. [place] lifts, holds or supports trunk or limbs, but provides less than half the effort. 2-Substantial/Maximal Assistance-helper does MORE THAN HALF the effort. [place] lifts or holds trunk or limbs and provides more than half the effort. 3-Diourqxck-qepoeu does ALL the effort. Patient does none of the effort to complete the activity. Or, the assistance of 2 or more helpers is required for the patient to complete the activity. If activity was not attempted, code reason: 7-Patient Refused. 9-Not Applicable-not attempted and the patient did not perform the activity before the current illness, exacerbation or injury. 10-Not Attempted due to Environmental Limitations-(lack of equipment, weather restraints, etc.). 88-Not Attempted due to Medical Conditions or Safety Concerns. Treatments Reviewed safety and functional mobility. Educated on the importance of getting up and moving frequently. reviewed safety with patient and exercises he can perform in the chair. Assessment Current Status: Good Progress Pt is improved. Up ad jackie in his room. PT Mold Tooler Goals Jail Goals PT Jail Goals Time Frame: Jan 06, 2021 Roll Left & Right (QC): 6 Sit to Lying (QC): 6 Lying-Sitting on Side/Bed(QC): 6 Sit to Stand (QC): 6 Chair/Ylk-nu-Wtesk Xfer(QC): 6 Toilet Transfer (QC): 6 Walk 10 feet (QC): 6 Walk 50ft with 2 Turns (QC): 6 Walk 150 ft (QC): 6 PT Plan Problem List Problem List: Activity Tolerance, Functional Strength, Safety Treatment/Plan Treatment Plan: Continue Plan of Care Treatment Plan: Education, Functional Activity Bhupendra, Functional Strength, Gait, Safety, Therapeutic Exercise, Transfers Treatment Duration: Jan 06, 2021 Frequency: 6 times per week Estimated Hrs Per Day: .25 hour per day Patient and/or Family Agrees t: Yes Safety Risks/Education Patient Education: Safety Issues Teaching Recipient: Patient Teaching Methods: Discussion Response to Teaching: Return Demonstration discussed exercises and mobility while hospitalized. Time/GCodes Time In: 1155 Time Out: 1205 Total Billed Treatment Time: 10 Total Billed Treatment visit FA 10 ANOOP DUKE PT Dec 31, 2020 12:05
--- NOTE | 2020-12-31 12:23 | Progress Note - Hospitalist ---
Subjective HPI/CC On Admission Date Seen by Provider: Dec 31, 2020 Time Seen by Provider: 12:00 Subjective/Events-last exam Patient feels great today but remains on oxygen. He is much more able to get around and has a lot less shortness of breath. Bowels moving well Review of Systems Pulmonary: Dyspnea Focused Exam Time of Focused Exam: 1620 Objective Exam Vital Signs Vital Signs Date Time Temp Pulse Resp B/P (MAP) Pulse Ox O2 Delivery O2 Flow Rate FiO2 12/31/20 12:00 35.5 91 20 151/77 (101) 91 NIV Bilevel 3.00 12/29/20 13:54 45 Capillary Refill : Less Than 3 SecondsLess Than 3 Seconds General Appearance: No Apparent Distress, WD/WN HEENT: Normal ENT Inspection Neck: Supple Respiratory: Lungs Clear, Normal Breath Sounds, No Accessory Muscle Use, No Respiratory Distress Cardiovascular: Regular Rate, Rhythm, No Gallop, No JVD, No Murmur Gastrointestinal: Normal Bowel Sounds, Non Tender, Soft Extremity: No Pedal Edema Results/Procedures Lab Laboratory Tests 12/31/20 05:49 Patient resulted labs reviewed. Assessment/Plan Assessment and Plan Assess & Plan/Chief Complaint Acute respiratory failure secondary to Covid improving Over 19 status post convalescent plasma on dexamethasone Type 2 diabetes History of hypertension Struct of sleep apnea Hyperlipidemia Elevated liver function tests possibly secondary to fatty liver disease versus Covid ANGEL REBOLLEDO MD Dec 31, 2020 12:23
[2020-12-31] MEDS: ENOXAPARIN 40 MG/0.4 ML (LOVENOX) SYR SC SCH (17:47)
[2021-01-01] MEDS: RT-ALBUTEROL INHALER HFA (VENTOLIN HFA) 18 GM IH SCH ×6 (02:45→21:09)
[2021-01-01 03:53] VITALS: BP 156/72
[2021-01-01] MEDS: inSUlin ASPART (NovoLOG) 1 UNIT/0.01 ML (CHARGE PER UNIT) SC SCH ×4 (05:24→20:05)
[2021-01-01] MEDS: UMECLIDINIUM BROMIDE (INCRUSE ELLIPTA) 7'S IH SCH (07:27)
[2021-01-01 08:00] VITALS: BP 157/83
[2021-01-01] MEDS: guaiFENesin (MUCINEX) 600 MG TAB PO SCH ×2 (09:15→20:05)
[2021-01-01] MEDS: PANTOPRAZOLE 40 MG (PROTONIX) VIAL IV SCH (09:15)
[2021-01-01] MEDS: metFORMIN 500 MG (GLUCOPHAGE) TAB PO SCH ×2 (09:15→18:47)
[2021-01-01 12:00] VITALS: BP 148/85
--- NOTE | 2021-01-01 12:31 | Progress Note - Hospitalist ---
Subjective HPI/CC On Admission Date Seen by Provider: Jan 01, 2021 Time Seen by Provider: 11:45 Subjective/Events-last exam Patient feels great and is anxious to go home tomorrow on oxygen. He has no complaints Review of Systems Pulmonary: Dyspnea Focused Exam Time of Focused Exam: 1620 Objective Exam Vital Signs Vital Signs Date Time Temp Pulse Resp B/P (MAP) Pulse Ox O2 Delivery O2 Flow Rate FiO2 01/01/21 12:00 35.4 83 20 148/85 (106) 97 High Flow N/C 3.50 12/29/20 13:54 45 Capillary Refill : Less Than 3 SecondsLess Than 3 Seconds General Appearance: No Apparent Distress, WD/WN HEENT: Normal ENT Inspection Neck: Normal Inspection, Supple Respiratory: Lungs Clear, Normal Breath Sounds, No Accessory Muscle Use, No Respiratory Distress Cardiovascular: Regular Rate, Rhythm, No Gallop, No JVD, No Murmur Gastrointestinal: Normal Bowel Sounds, Soft, Distended Rectal: Deferred Back: Normal Inspection Extremity: No Pedal Edema Results/Procedures Lab Patient resulted labs reviewed. Assessment/Plan Assessment and Plan Assess & Plan/Chief Complaint Acute respiratory failure secondary to Covid improving Covid 19 status post convalescent plasma on dexamethasone Type 2 diabetes History of hypertension Obstructive sleep apnea Hyperlipidemia Elevated liver function tests possibly secondary to fatty liver disease versus Covid-stable Plan for discharge tomorrow ANGEL REBOLLEDO MD Jan 01, 2021 12:31
[2021-01-01 15:46] VITALS: BP 124/73
[2021-01-01] MEDS: ENOXAPARIN 40 MG/0.4 ML (LOVENOX) SYR SC SCH (17:11)
[2021-01-01 19:40] VITALS: BP 147/82
[2021-01-01 23:00] VITALS: BP 155/79
[2021-01-02] MEDS: RT-ALBUTEROL INHALER HFA (VENTOLIN HFA) 18 GM IH SCH ×3 (02:33→10:16)
[2021-01-02 03:04] VITALS: BP 138/66
[2021-01-02 05:45] LABS: BASOPHILS % (AUTO) 0 % (0-10); EOSINOPHILS # (AUTO) 0.1 10^3/uL (0.0-0.3); EOSINOPHILS % (AUTO) 1 % (0-10); HEMATOCRIT 37 % (40-54); HEMOGLOBIN 11.9 g/dL (13.3-17.7); LYMPHOCYTES # (AUTO) 2.1 10^3/uL (1.0-4.0); LYMPHOCYTES % (AUTO) 25 % (12-44); MEAN CORPUSCULAR HEMOGLOBIN 30 pg (25-34); MEAN CORPUSCULAR HGB CONC 33 g/dL (32-36); MEAN CORPUSCULAR VOLUME 93 fL (80-99); MEAN PLATELET VOLUME 9.6 fL (9.0-12.2); MONOCYTES # (AUTO) 0.8 10^3/uL (0.0-1.0); MONOCYTES % (AUTO) 9 % (0-12); NEUTROPHILS # (AUTO) 5.3 10^3/uL (1.8-7.8); NEUTROPHILS % (AUTO) 61 % (42-75); PLATELET COUNT 367 10^3/uL (130-400); WHITE BLOOD COUNT 8.6 10^3/uL (4.3-11.0)
[2021-01-02 06:08] LABS: ALANINE AMINOTRANSFERASE 160 U/L (0-55); ALBUMIN 3.1 GM/DL (3.2-4.5); ALKALINE PHOSPHATASE 41 U/L (40-136); BILIRUBIN,TOTAL 0.3 MG/DL (0.1-1.0); BUN/CREATININE RATIO 17; CALCIUM 8.8 MG/DL (8.5-10.1); CARBON DIOXIDE 24 MMOL/L (21-32); CHLORIDE 101 MMOL/L (98-107); GFR ESTIMATED > 60; GLUCOSE 131 MG/DL (70-105); POTASSIUM 4.6 MMOL/L (3.6-5.0); SODIUM 137 MMOL/L (135-145); TOTAL PROTEIN 6.1 GM/DL (6.4-8.2)
[2021-01-02] MEDS: inSUlin ASPART (NovoLOG) 1 UNIT/0.01 ML (CHARGE PER UNIT) SC SCH (06:08)
[2021-01-02 07:42] VITALS: BP 151/81
[2021-01-02] MEDS: UMECLIDINIUM BROMIDE (INCRUSE ELLIPTA) 7'S IH SCH (07:43)
[2021-01-02] MEDS ORDERED: PANTOPRAZOLE 40 MG (PROTONIX) TAB PO SCH (09:00)
[2021-01-02] MEDS: metFORMIN 500 MG (GLUCOPHAGE) TAB PO SCH (09:13)
[2021-01-02] MEDS: guaiFENesin (MUCINEX) 600 MG TAB PO SCH (09:13)
[2021-01-02] MEDS ORDERED: AMLO5TAB4 PO (10:30)
[2021-01-02] MEDS ORDERED: PANT40TA52 PO (10:30)
[2021-01-02] MEDS ORDERED: DEXA6TAB6 PO (10:30)
[2021-01-02] MEDS ORDERED: GUAI600T43 PO (10:30)
[2021-01-02] MEDS ORDERED: UMEC62.5 IH (10:30)
--- NOTE | 2021-01-02 10:32 | Discharge Summary ---
Discharge Summary Hospital Course Was the Problem List Reviewed?: Yes Hospital Course Date of Admission: Dec 26, 2020 at 17:13 Admission Diagnosis : Family Physician/Provider: Alber Paris MD Date of Discharge: 01/02/21 Discharge Diagnosis: COVID-19 PNA, new O2 dependency Hospital Course: Hospital course: Pt had a lengthy hospital course for one week due to Covid and acute respiratory failure with hypoxemia and sepsis. He was managed aggressively with oxygen supplementation, completed most treatment except for Decadron while hospitalized, elevated sugar required insulin due to Decadron and he was found to be in need of 2 liters of oxygen at discharge, overall he was much improved and ready for discharge. Labs and Pending Lab Test: Laboratory Tests 01/01/21 11:04: Glucometer 239H 01/01/21 15:50: Glucometer 206H 01/01/21 19:40: Glucometer 294H 01/02/21 05:15: White Blood Count 8.6, Red Blood Count 3.93L, Hemoglobin 11.9L, Hematocrit 37L, Mean Corpuscular Volume 93, Mean Corpuscular Hemoglobin 30, Mean Corpuscular Hemoglobin Concent 33, Red Cell Distribution Width 13.0, Platelet Count 367, Mean Platelet Volume 9.6, Immature Granulocyte % (Auto) 4, Neutrophils (%) (Auto) 61, Lymphocytes (%) (Auto) 25, Monocytes (%) (Auto) 9, Eosinophils (%) (Auto) 1, Basophils (%) (Auto) 0, Neutrophils # (Auto) 5.3, Lymphocytes # (Auto) 2.1, Monocytes # (Auto) 0.8, Eosinophils # (Auto) 0.1, Basophils # (Auto) 0.0, Immature Granulocyte # (Auto) 0.3H, Sodium Level 137, Potassium Level 4.6, Chloride Level 101, Carbon Dioxide Level 24, Anion Gap 12, Blood Urea Nitrogen 17, Creatinine 1.00, Estimat Glomerular Filtration Rate > 60, BUN/Creatinine Ratio 17, Glucose Level 131H, Calcium Level 8.8, Corrected Calcium 9.5, Total Bilirubin 0.3, Aspartate Amino Transf (AST/SGOT) 57H, Alanine Aminotransferase (ALT/SGPT) 160H, Alkaline Phosphatase 41, Total Protein 6.1L, Albumin 3.1L 01/02/21 05:30: Glucometer 122H Microbiology 12/26/20 MRSA Screen - Final, Complete MRSA not isolated 12/26/20 Urine Culture - Final, Complete NO GROWTH 12/26/20 Blood Culture - Final, Complete No growth Home Meds Active Norvasc (Amlodipine Besylate) 5 Mg Tablet 5 Mg PO DAILY Decadron (Dexamethasone) 6 Mg Tablet 6 Mg PO DAILY Pantoprazole Sodium 40 Mg Tablet.dr 40 Mg PO DAILY Mucinex (Guaifenesin) 600 Mg Tab.er.12h 600 Mg PO BID Incruse Ellipta (Umeclidinium [place]) 62.5 Mcg Blst.w.dev 0 Inh IH DAILY@0800 Reported Aspirin EC (Aspirin) 81 Mg Tablet.dr 81 Mg PO DAILY Tessalon Perles (Benzonatate) 100 Mg Capsule 200 Mg PO TID TAKES 2 (100MG) CAPS Doxycycline Hyclate 100 Mg Capsule 100 Mg PO BID FILLED 12-24-2020 #20/10 DAY SUPPLY Prednisone 20 Mg Tab 40 PO DAILY TAKES 2 (20MG) TABS FILLED 12-24-2020 #6/3 DAY SUPPLY Proair Hfa (Albuterol Sulfate) 1 Puff Puff 2 Puff IH Q6H PRN Allopurinol 300 Mg Tablet 300 Mg PO DAILY Amaryl (Glimepiride) 2 Mg Tab 2 Mg PO DAILY Lisinopril-Hctz 20-12.5 mg Tab (Lisinopril/Hydrochlorothiazide) 1 Each Tablet 1 Each PO HS Metformin HCl 1,000 Mg Tablet 1,000 Mg PO BID Simvastatin 40 Mg Tablet 40 Mg PO DAILY Assessment/Pt Instructions [facility] 1 week Discharge Planning: <30 minutes discharge planning Discharge Instructions Discharge Diet: No Restrictions Activity as Tolerated: Yes Discharge Physical Examination Vital Signs Vital Signs Date Time Temp Pulse Resp B/P (MAP) Pulse Ox O2 Delivery O2 Flow Rate FiO2 01/02/21 10:10 95 3.00 01/02/21 08:00 High Flow N/C 01/02/21 07:42 35.7 84 22 151/81 (104) 12/29/20 13:54 45 General Appearance: No Apparent Distress, WD/WN Respiratory: Chest Non Tender, Lungs Clear, Normal Breath Sounds, No Accessory Muscle Use, No Respiratory Distress Cardiovascular: Regular Rate, Rhythm, No Edema, No Gallop, No JVD, No Murmur, Normal Peripheral Pulses Allergies: Coded Allergies: No Known Drug Allergies (Unverified , 12/23/20) Discharge Summary Date of Admission Dec 26, 2020 at 17:13 Date of Discharge Discharge Date: Jan 02, 2021 NGOZI WELLS DO Jan 02, 2021 10:32
[2021-01-02] MEDS ORDERED: amLODIPine 5 MG (NORVASC) TAB PO ONE (10:45)
== END 2021-01-02 11:50 | disposition home or self-care (01) | DRG 871 ==
LOC: EDUNIT# 12:13 → ER FS 12:18 → ICU 17:13 → 4TH 12-28 11:14
PROVIDERS: ADMIT Family Medicine; ATTEND Internal Medicine
PROC: 5A09557 Assistance with Respiratory Ventilation, Greater than 96 Consecutive Hours, Continuous Positive Airway Pressure (ICD-10-PCS; principal; 2020-12-26)
PROC: XW13325 Transfusion of Convalescent Plasma (Nonautologous) into Peripheral Vein, Percutaneous Approach, New Technology Group 5 (ICD-10-PCS; 2020-12-28)
DX: A41.89 Other specified sepsis (principal); U07.1 COVID-19; J12.82 Pneumonia due to coronavirus disease 2019; J96.01 Acute respiratory failure with hypoxia; N17.9 Acute kidney failure, unspecified; E11.9 Type 2 diabetes mellitus without complications; E66.01 Morbid (severe) obesity due to excess calories; Z68.38 Body mass index [BMI] 38.0-38.9, adult; D64.9 Anemia, unspecified; E78.5 Hyperlipidemia, unspecified; J44.9 Chronic obstructive pulmonary disease, unspecified; G47.33 Obstructive sleep apnea (adult) (pediatric); E78.00 Pure hypercholesterolemia, unspecified; I10 Essential (primary) hypertension; Z79.52 Long term (current) use of systemic steroids
CPT/HCPCS: 36415; 36600; 71045; 80048; 80053; 80076; 81000; 82274; 82728; 82805; 82962; 83540; 83550; 83605; 83735; 83880; 84100; 84145; 84484; 85007; 85025; 85027; 85045; 85055; 85379; 85610; 85730; 86141; 86850; 86900; 86901; 87040; 87081; 87088; 87804; 93005; 94640; 94660; 94760; 94761; 96361; 96365; 96375; 99291

== ENCOUNTER 2022-08-04 23:25 | Emergency (ER) | payer MEDICARE ==
[~2022-08-04 23:25] MED LIST changes: +ALBU8.5H6 IH; +ALLO300T2 PO; +AMLO5TAB4 PO; +ASPI-1238 PO; +DEXA6TAB6 PO; +DOXY100C5 PO; +GLMP2T PO; +GUAI600T43 PO; +LISI1TAB46 PO; +METF-399 PO; +PANT40TA52 PO; +PIOG30TA71 PO; +SIMV40TA25 PO; +UMEC62.5 IH
[2022-08-04] MEDS ORDERED: FAMOTIDINE 20 MG (PEPCID) TABLET PO STA (23:34)
[2022-08-04 23:38] LABS: BASOPHILS # (AUTO) 0.1 10^3/uL (0.0-0.1); BASOPHILS % (AUTO) 1 % (0-10); EOSINOPHILS # (AUTO) 0.2 10^3/uL (0.0-0.3); EOSINOPHILS % (AUTO) 2 % (0-10); HEMATOCRIT 39 % (40-54); HEMOGLOBIN 14.3 g/dL (13.3-17.7); LYMPHOCYTES # (AUTO) 2.6 10^3/uL (1.0-4.0); LYMPHOCYTES % (AUTO) 39 % (12-44); MEAN CORPUSCULAR HEMOGLOBIN 32 pg (25-34); MEAN CORPUSCULAR HGB CONC 36 g/dL (32-36); MEAN CORPUSCULAR VOLUME 87 fL (80-99); MONOCYTES # (AUTO) 0.6 10^3/uL (0.0-1.0); MONOCYTES % (AUTO) 8 % (0-12); NEUTROPHILS # (AUTO) 3.4 10^3/uL (1.8-7.8); NEUTROPHILS % (AUTO) 50 % (42-75); PLATELET COUNT 245 10^3/uL (130-400); WHITE BLOOD COUNT 6.8 10^3/uL (4.3-11.0)
[2022-08-04] MEDS ORDERED: ANTACID SUSP 30 ML UDC (MYLANTA) PO ONE (23:45)
[2022-08-04] MEDS ORDERED: LIDOCAINE 2% VISCOUS 15 ML UDC PO ONE (23:45)
[2022-08-04] MEDS ORDERED: ACETAMINOPHEN 500 MG TAB (TYLENOL) PO ONE (23:45)
[2022-08-04 23:48] LABS: INR 0.9 (0.8-1.4)
[2022-08-05] LABS: POTASSIUM 4.3 MMOL/L (3.6-5.0)
[2022-08-05 00:01] LABS: CREATININE SERUM 1.3 MG/DL (0.60-1.30)
[2022-08-05 00:02] LABS: BILIRUBIN,TOTAL 0.3 MG/DL (0.1-1.0); MAGNESIUM 1.9 MG/DL (1.6-2.4); TOTAL PROTEIN 6.9 GM/DL (6.4-8.2)
[2022-08-05] MEDS ORDERED: NS IV 1000 ML 1,000 ML IV STA (00:11)
--- NOTE | 2022-08-05 00:11 | ED Cardiac General ---
History of Present Illness General Chief Complaint: Chest Pain Stated Complaint: CHEST PAINS Nursing Triage Note: Pt complaining of chest pain that has been going on since late afternoon today. Pt states he fell on and was unsure if his pain was related to it. Pt also states he had back pain all night last night Source: patient Exam Limitations: no limitations History of Present Illness Date Seen by Provider: Aug 05, 2022 Time Seen by Provider: 23:25 Initial Comments 66-year-old male with past medical history of hypertension, hyperlipidemia, type 2 diabetes (off meds for over 2 years because he didn't feel well on them), coming in due to chest pain. He states he fell a couple days ago, and the pain started last night. He associates them together, but is unsure. He did not his head or pass out. Started over 24 hours prior, sharp in his back to his front, constant, a little bit better with activity. Has never had pain like this before. Denies any prior history of cardiac disease, PE, DVT, lower extremity swelling or pain, or any other concerns. He has taken full dose aspirin today already. Allergies and Home Medications Allergies Coded Allergies: No Known Drug Allergies (Unverified , 12/23/20) Patient Home Medication List Home Medication List Reviewed: Yes Albuterol Sulfate (Ventolin Hfa) 1 Puff Puff, 2 PUFF IH Q6H PRN for SHORTNESS OF BREATH, (Reported) Entered as Reported by: MICHAEL SANDERS on 12/27/20 1550 Allopurinol (Allopurinol) 300 Mg Tablet, 300 MG PO DAILY, (Reported) Entered as Reported by: GRANT DAVILA on 12/27/20 1116 Amlodipine Besylate (Norvasc) 5 Mg Tablet, 5 MG PO DAILY Prescribed by: NGOZI WELLS on 01/02/21 1030 Aspirin (Aspirin EC) 81 Mg Tablet.dr, 81 MG PO DAILY, (Reported) Entered as Reported by: MICHAEL SANDERS on 12/27/20 1556 Benzonatate (Tessalon Perles) 100 Mg Capsule, 200 MG PO TID, (Reported) Entered as Reported by: MICHAEL SANDERS on 12/27/20 1550 Dexamethasone (Decadron) 6 Mg Tablet, 6 MG PO DAILY Prescribed by: NGOZI WELLS on 01/02/21 1030 Glimepiride (Amaryl) 2 Mg Tab, 2 MG PO DAILY, (Reported) Entered as Reported by: GRANT ADVILA on 12/27/20 1116 Guaifenesin (Mucinex) 600 Mg Tab.er.12h, 600 MG PO BID Prescribed by: NGOZI WELLS on 01/02/21 1030 Metformin HCl (Metformin HCl) 1,000 Mg Tablet, 1,000 MG PO BID, (Reported) Entered as Reported by: GRANT DAVILA on 12/27/20 1116 Pantoprazole Sodium (Pantoprazole Sodium) 40 Mg Tablet.dr, 40 MG PO DAILY Prescribed by: NGOZI WELLS on 01/02/21 1030 Umeclidinium [place] (Incruse Ellipta) 62.5 Mcg Blst.w.dev, 0 INH IH DAILY@0800 Prescribed by: NGOZI WELLS on 01/02/21 1030 Review of Systems Review of Systems Constitutional: No fever EENTM: No Symptoms Reported Respiratory: No Symptoms Reported Cardiovascular: See HPI Gastrointestinal: No Symptoms Reported Genitourinary: No Symptoms Reported Musculoskeletal: no symptoms reported Skin: no symptoms reported Psychiatric/Neurological: No Symptoms Reported Endocrine: No Symptoms Reported Hematologic/Lymphatic: No Symptoms Reported All Other Systems Reviewed Negative Unless Noted: Yes Past Dczwgku-Hsntsu-Ukpqfc Hx Patient Social History Tobacco Use?: No Use of E-Cig and/or Vaping dev: No Substance use?: No Alcohol Use?: No Pt feels they are or have been: No Seasonal Allergies Seasonal Allergies: No Past Medical History Surgeries: No Respiratory: Yes Sleep Apnea, COPD Currently Using CPAP: Yes Cardiac: Yes High Cholesterol, Hypertension Neurological: No Genitourinary: No Gastrointestinal: No Musculoskeletal: No Endocrine: Yes Diabetes, Non-Insulin dep HEENT: No Cancer: No Psychosocial: No Integumentary: Yes (Skin Tags) Blood Disorders: No Family Medical History Heart Disease Physical Exam Vital Signs Vital Signs - First Documented 08/04/22 23:25 Temp 36.6 Pulse 83 Resp 18 B/P (MAP) 161/94 (116) Pulse Ox 95 O2 Delivery Room Air Capillary Refill : Less Than 3 Seconds Height, Weight, BMI Height: '" Weight: lbs. oz. kg; 36.46 BMI Method: General Appearance: No Apparent Distress, WD/WN HEENT: PERRL/EOMI, Normal ENT Inspection, Pharynx Normal Neck: Full Range of Motion, Normal Inspection, Non Tender, Supple Respiratory: Chest Non Tender, Lungs Clear, Normal Breath Sounds, No Accessory Muscle Use, No Respiratory Distress Cardiovascular: Regular Rate, Rhythm, No Edema, Normal Peripheral Pulses Gastrointestinal: Normal Bowel Sounds, Non Tender, Soft; No Distended, No Guarding Extremity: Normal Capillary Refill, Normal Inspection, Normal Range of Motion, Non Tender, No Calf Tenderness, No Pedal Edema Neurologic/Psychiatric: Alert, No Motor/Sensory Deficits, Normal Mood/Affect Skin: Normal Color, Warm/Dry Lymphatic: No Adenopathy Progress/Results/Core Measures Results/Orders Lab Results Laboratory Tests Test 08/04/22 23:35 Range/Units White Blood Count 6.8 4.3-11.0 10^3/uL Red Blood Count 4.54 4.30-5.52 10^6/uL Hemoglobin 14.3 13.3-17.7 g/dL Hematocrit 39 L 40-54 % Mean Corpuscular Volume 87 80-99 fL Mean Corpuscular Hemoglobin 32 25-34 pg Mean Corpuscular Hemoglobin Concent 36 32-36 g/dL Red Cell Distribution Width 12.5 10.0-14.5 % Platelet Count 245 130-400 10^3/uL Mean Platelet Volume 11.0 9.0-12.2 fL Immature Granulocyte % (Auto) 0 % Neutrophils (%) (Auto) 50 42-75 % Lymphocytes (%) (Auto) 39 12-44 % Monocytes (%) (Auto) 8 0-12 % Eosinophils (%) (Auto) 2 0-10 % Basophils (%) (Auto) 1 0-10 % Neutrophils # (Auto) 3.4 1.8-7.8 10^3/uL Lymphocytes # (Auto) 2.6 1.0-4.0 10^3/uL Monocytes # (Auto) 0.6 0.0-1.0 10^3/uL Eosinophils # (Auto) 0.2 0.0-0.3 10^3/uL Basophils # (Auto) 0.1 0.0-0.1 10^3/uL Immature Granulocyte # (Auto) 0.0 0.0-0.1 10^3/uL Prothrombin Time 12.0 L 12.2-14.7 SEC INR Comment 0.9 0.8-1.4 Activated Partial Thromboplast Time 23 L 24-35 SEC Sodium Level 126 L 135-145 MMOL/L Potassium Level 4.3 3.6-5.0 MMOL/L Chloride Level 90 L 98-107 MMOL/L Carbon Dioxide Level 24 21-32 MMOL/L Anion Gap 12 5-14 MMOL/L Blood Urea Nitrogen 16 7-18 MG/DL Creatinine 1.30 0.60-1.30 MG/DL Estimat Glomerular Filtration Rate 61 BUN/Creatinine Ratio 12 Glucose Level 572 *H 70-105 MG/DL Calcium Level 9.0 8.5-10.1 MG/DL Corrected Calcium 9.0 8.5-10.1 MG/DL Magnesium Level 1.9 1.6-2.4 MG/DL Total Bilirubin 0.3 0.1-1.0 MG/DL Aspartate Amino Transf (AST/SGOT) 13 5-34 U/L Alanine Aminotransferase (ALT/SGPT) 26 0-55 U/L Alkaline Phosphatase 88 40-136 U/L Troponin I < 0.30 <0.30 NG/ML Pro-B-Type Natriuretic Peptide 40.4 <125.0 PG/ML Total Protein 6.9 6.4-8.2 GM/DL Albumin 4.0 3.2-4.5 GM/DL Lipase 69 8-78 U/L My Orders Orders - SOL MONTANO MD Cbc With Automated Diff (08/04/22 23:34) Magnesium (08/04/22 23:34) Chest 1 View Ap/Pa Only (08/04/22 23:34) Ekg Tracing (08/04/22 23:34) Comprehensive Metabolic Panel (08/04/22 23:34) Protime With Inr (08/04/22 23:34) Partial Thromboplastin Time (08/04/22 23:34) O2 (08/04/22 23:34) Monitor-Rhythm Ecg Trace Only (08/04/22 23:34) Ed Iv/Invasive Line Start (08/04/22 23:34) Lipase (08/04/22 23:34) Troponin I Fs (08/04/22 23:34) Probnp Fs (08/04/22 23:34) Lidocaine 2% Viscous 15 Ml (Xylocaine Vi (08/04/22 23:45) Famotidine Tablet (Pepcid Tablet) (08/04/22 23:34) Antacid Suspension (Mylanta Suspension (08/04/22 23:45) Acetaminophen Tablet (Tylenol Tablet) (08/04/22 23:45) Ns Iv 1000 Ml (Sodium Chloride 0.9%) (08/05/22 00:11) Insulin (Regular) Human (Novolin R (Per (08/05/22 00:15) Medications Given in ED Current Medications Medications Dose Ordered Sig/Choco Route Start Time Stop Time Status Last Admin Dose Admin Acetaminophen 1,000 mg ONCE ONCE PO 08/04/22 23:45 08/04/22 23:46 DC 08/04/22 23:56 1,000 MG Al Hydrox/Mg Hydrox/Simethicone 30 ml ONCE ONCE PO 08/04/22 23:45 08/04/22 23:46 DC 08/04/22 23:56 30 ML Insulin Human Regular 10 unit ONCE ONCE IV 08/05/22 00:15 08/05/22 00:16 DC 08/05/22 00:19 10 UNIT Lidocaine HCl 15 ml ONCE ONCE PO 08/04/22 23:45 08/04/22 23:46 DC 08/04/22 23:56 15 ML Vital Signs/I&O 08/04/22 23:25 Temp 36.6 Pulse 83 Resp 18 B/P (MAP) 161/94 (116) Pulse Ox 95 O2 Delivery Room Air Blood Pressure Mean: 116 Progress Progress Note : Progress Note 66-year-old male with above history coming in due to chest discomfort that is been lasting for more than 24 hours straight. The pain is better with ambulation and activity. EKG with no STEMI. An IV was placed and basic labs were obtained and were significant for an undetectable troponin, but a glucose of greater than 500. He states he knows he is diabetic, but took him self off his medicines 2 years ago because he felt better off of them. He states he is actually lost weight off of them. I discussed that he is still a diabetic and he needs to be on medicines. We given IV fluids for this and insulin. Given that the pain has been present for more than 24 hours straight with a negative troponin, its unlikely to be ACS related. He is otherwise low risk for PE and symptoms do not seem to fit. Could be trauma related. X-ray of his chest with no pneumonia, no pneumo/hemothorax, and no obviously displaced rib fractures on my interpretation. I believe he is stable for discharge with outpatient follow-up. He was sent home with strict return precautions. Of note, E prescriptions were down, metformin Rx was handwritten and given to the patient. Initial ECG Impression Date: Aug 05, 2022 Initial ECG Impression Time: 23:27 Initial ECG Rate: 82 Initial ECG Rhythm: Normal Sinus Comment Normal sinus, narrow QRS borderline left axis deviation, no significant ST changes Diagnostic Imaging Diagonstic Imaging: Xray Plain Films/CT/US/NM/MRI: chest Departure Impression Primary Impression: Chest wall pain Additional Impression: Hyperglycemia Disposition: 01 HOME, SELF-CARE Condition: Stable Departure-Patient Inst. Decision time for Depature: 00:45 Referrals: SHRADDHA MEDEROS MD (PCP/Family) Primary Care Physician Patient Instructions: Chest Pain That Is Not Caused by the Heart (DC), High Blood Sugar, Adult ED Add. Discharge Instructions: The only abnormality that was significant today was your glucose was more than 500. We will send metformin to [facility] that you can start taking a low-dose tomorrow. Follow-up with your regular doctor and see if they can put you on a medicine that you can can be more agreeable with that does not have as many symptoms if that is what you would like. Work/School Note: Work Release Form Date Seen in the Emergency Department: Aug 05, 2022 Return to Work: Aug 06, 2022 Restrictions: No Restrictions SOL MONTANO MD Aug 05, 2022 00:11
[2022-08-05] MEDS ORDERED: inSUlin (REGULAR) HUMAN 1 UNIT/0.01 ML (CHARGE PER UNIT) IV ONE (00:15)
[2022-08-05 00:54] VITALS: BP 161/80
--- NOTE | 2022-08-05 06:17 | Diagnostic Imaging Report ---
CLINICAL INDICATION: Patient states that he has chest pain this evening. EXAM: Portable chest x-ray upright view. COMPARISON: Chest x-ray dated 12/28/2020. FINDINGS: Lungs/pleura: There is a small calcified granuloma in the right lung base. Lungs are otherwise clear. There is resolution of the previously seen bilateral lung infiltrates. There is no pneumothorax. There is no pleural effusion. Mediastinum: Unremarkable. Pulmonary vasculature: Unremarkable. Heart: Unremarkable. Bones/extrathoracic soft tissue: There are degenerative spurs involving the thoracic spine. IMPRESSION: 1: There is no radiographic evidence of acute cardiopulmonary process. 2: Right lower lobe calcified granuloma. Dictated by: Dictated on workstation # [id number]
== END 2022-08-05 01:01 | disposition home or self-care (01) ==
LOC: EDUNIT# 23:25 → ER FS 23:27
DX: R07.89 Other chest pain (principal); E11.65 Type 2 diabetes mellitus with hyperglycemia; I10 Essential (primary) hypertension; E78.5 Hyperlipidemia, unspecified; G47.30 Sleep apnea, unspecified; Z79.82 Long term (current) use of aspirin; Z99.89 Dependence on other enabling machines and devices; Z91.14 Patient's other noncompliance with medication regimen; Z79.4 Long term (current) use of insulin; Z28.310 Unvaccinated for COVID-19
CPT/HCPCS: 36415; 71045; 80053; 82947; 83690; 83735; 83880; 84484; 85025; 85610; 85730; 93005; 93041